=== PATIENT | female | born 1935 | race Caucasian/White ===

== ENCOUNTER 2020-08-30 12:43 | Emergency (ER) | payer MEDICARE, OTHER, SELFPAY ==
[2020-08-30] VITALS (9 sets, daily range): BP systolic 158–201; BP diastolic 59–84; PULSE 54–66; RESP 12–26; TEMP 36.8; O2SAT 96–100
--- NOTE | ~2020-08-30 | XR_ITS ---
XR chest 1V portable DATE: 08/30/2020 13:49 INDICATION: Weakness. TECHNIQUE: Portable AP chest on 08/30/2020 at 1348 hours COMPARISON: 06/16/2019 AP and lateral chest FINDINGS: There are multiple old rib fracture deformities, especially on the right. Diffuse osteopeni a. Dextroscoliosis and degenerative spurring of the thoracolumbar spine. Cardiomegaly. Aortic calcification. No hilar or mediastinal enlargement. No pulmonary infiltrate or consolidation, pleural effusion or pulmonary vascular congestion or pneumo thorax IMPRESSION: Cardiomegaly Aortic atherosclerosis No active pulmonary disease Reviewed, dictated and finalized at location A.
--- NOTE | 2020-08-30 13:04 | ECG_ITS ---
Measurements Intervals [place] Rate: 65 P: 71 [place]: 224 QRS: -21 QRSD: 89 T: 57 QT: 418 QTc: 437 Interpretive Statements SINUS RHYTHM WITH FIRST DEGREE AV BLOCK VOLTAGE CRITERIA FOR LVH ANTEROSEPTAL INFARCT, AGE INDETERMINATE BORDERLINE ST ABNORMALITY- LATERAL LEADS ABNORMAL ECG Electronically Signed On 08-30-2020 13:46:20 CDT by Nahun Fishman D.O.
[2020-08-30 13:34] LABS: Basophils Percent Auto 0.4 % (0.2-1.2); Eosinophils Absolute Auto 0.1 K/mm3 (0-0.3); Eosinophils Percent Auto 1.6 % (0-4.4); Hematocrit 39.8 % (37.0-47.0); Hemoglobin 12.9 g/dL (12.0-15.0); Immature Granulocyte Absolute 0.02 K/mm3 (0.00-0.031); Immature Granulocyte Percent A 0.3 % (0-0.5); Lymphocytes Absolute Auto 1.11 K/mm3 (0.9-3.2); Lymphocytes Percent Auto 16.2 % (18.3-44.2); Mean Corpuscular HGB Conc 32.4 g/dl (32-36); Mean Corpuscular Hemoglobin 30.1 pg (26-34); Mean Platelet Volume 8.9 fl (7.4-10.4); Monocytes Absolute Auto 0.6 K/mm3 (0.1-0.6); Monocytes Percent Auto 9.1 % (2.6-8.5); Neutrophils Percent Auto 72.4 % (45.5-73.1); Platelet Count Result 208 k/mm3 (150-375); Red Blood Count 4.28 M/mm3 (4.2-5.4); Red Cell Distribution Width 13.3 % (11.5-14.5); White Blood Count 6.8 K/mm3 (4.5-10.0)
[2020-08-30 13:50] LABS: Alanine Aminotransferase 15 U/L (4-35); Albumin Level 3.8 g/dL (3.5-5.1); Alkaline Phosphatase 58 U/L (38-126); Anion Gap 6 mmol/L (8-16); Aspartate Amino Transferase 30 U/L (14-36); Bilirubin,Total 0.7 mg/dL (0.2-1.3); Blood Urea Nitrogen 40 mg/dL (7-17); Carbon Dioxide 30 mmol/L (22-30); Chloride 101 mmol/L (98-107); Estimated CRCL calculation 44 ml/min; Estimated Glomerular Filt Rate > 60; Glucose 131 mg/dL (65-105); Potassium 4.8 mmol/L (3.4-5.0); Sodium 137 mmol/L (137-145)
[2020-08-30 13:53] LABS: Add Urine Microscopic? YES; Appearance Urine Clear (Clear); Bilirubin Urine Negative (Negative); Blood Urine Negative (Negative); Color Urine Yellow (Yellow); Glucose Urine UA Negative (Negative); Ketones Urine Negative (Negative); Leukocyte Esterase Ur Negative LEU/UL (Negative); Mucus Urine Heavy /lpf; Nitrate Urine Negative (Negative); Protein Urine 1+ mg/dL (Negative); Specific Grav Ur 1.028 (1.001-1.035); Squamous Epithelial Cell Urine Occasional /hpf (Few); Transitional Epi Cells Urine Rare /hpf (None Seen); Urobilinogen Urine Negative mg/dL (<2.0)
[2020-08-30] MEDS: SODIUM CHLORIDE 0.9% IV 1,000 ML 999 ML IV CONT (14:24)
--- NOTE | 2020-08-30 15:03 | ED.WEAKNESS ---
HPI - Weakness General Chief complaint: Weakness Stated complaint: lethargy, off-balance, poor appetite x 1 week Time Seen by Provider: 08/30/20 13:15 History of Present Illness HPI Narrative: Patient is an 84-year-old female who presents the ER with increased fatigue and decreased eating. Worsening over the last 3 or 4 days. Patient seems to be forgetting how to eat her food and is sleeping more than usual. Patient has dementia that has been in significant decline over the last couple years. She has had no infectious symptoms according to her global sales manager. No falls. No additional complaints. Related Data Home Medications Medication Instructions Recorded Confirmed aspirin [Adult Aspirin EC Low 08/30/20 Strength] donepezil mg 08/30/20 08/30/20 fluticasone propionate [Flonase] INTRANASAL 08/30/20 losartan 08/30/20 memantine mg 08/30/20 metoprolol succinate PO 08/30/20 nifedipine PO 08/30/20 pravastatin 08/30/20 quetiapine 08/30/20 sertraline mg 08/30/20 Allergies Allergy/AdvReac Type Severity Reaction Status Date / Time carisoprodol Allergy Unknown Verified 08/30/20 14:38 [From Soma Compound] Review of Systems Review of Systems: ROS unobtainable: Yes unobtainable due to mental status PMFSH Past Medical History Medical History (Updated 08/30/20 @ 15:06 by Qasim Engel MD) Dementia Hyperlipidemia Hypertension Surgical History Surgical History (Updated 08/30/20 @ 15:04 by Qasim Engel MD) No history of previous surgery Social History Social History (Updated 08/30/20 @ 15:04 by Qasim Engel MD) Smoking status: Never smoker Exam Narrative: Exam Narrative: GENERAL: Well-appearing, well-nourished, and in no acute distress. HEAD: Normocephalic, atraumatic. EYES: PERRL and EOMI. CHEST: Clear to auscultation. No respiratory distress. HEART: Regular rate and rhythm. Normal peripheral pulses. ABDOMEN: Soft, nontender, nondistended, normal active bowel sounds. EXTREMITIES: Normal range of motion. No edema. NEURO: Alert and oriented x2. PSYCH: Normal mood and affect. Course Course Emergency Course: Patient appears well has no complaints despite her dementia. Discussed with family member that patient may just have progressing dementia. We will start her on a very short course of antibiotics in case her urine represents a very mild UTI. Vital Signs Vital signs: Vital Signs Temperature 98.3 F 08/30/20 13:14 Pulse Rate 65 08/30/20 13:14 Respiratory Rate 18 08/30/20 13:14 Blood Pressure 177/69 H 08/30/20 13:14 Pulse Oximetry 97 08/30/20 13:14 Temperature 98.3 F 08/30/20 13:14 Pulse Rate 65 08/30/20 13:14 Respiratory Rate 18 08/30/20 13:14 Blood Pressure 177/69 H 08/30/20 13:14 Pulse Oximetry 97 08/30/20 13:14 MDM - Weakness Lab Data Result diagrams: 08/30/20 13:27 08/30/20 13:27 Labs: Lab Results 08/30/20 08/30/20 08/30/20 Range/Units 13:27 13:27 13:37 WBC 6.8 (4.5-10.0) K/mm3 RBC 4.28 (4.2-5.4) M/mm3 Hgb 12.9 (12.0-15.0) g/dL Hct 39.8 (37.0-47.0) % MCV 93.0 (80-100) fl MCH 30.1 (26-34) pg MCHC 32.4 (32-36) g/dl RDW 13.3 (11.5-14.5) % Plt Count 208 (150-375) k/mm3 MPV 8.9 (7.4-10.4) fl Immature Gran % (Auto) 0.3 (0-0.5) % Neut % (Auto) 72.4 (45.5-73.1) % Lymph % (Auto) 16.2 L (18.3-44.2) % [place] % (Auto) 9.1 H (2.6-8.5) % Eos % (Auto) 1.6 (0-4.4) % Baso % (Auto) 0.4 (0.2-1.2) % Lymph # (Auto) 1.11 (0.9-3.2) K/mm3 [place] # (Auto) 0.6 (0.1-0.6) K/mm3 Eos # (Auto) 0.1 (0-0.3) K/mm3 Baso # (Auto) 0.0 (0.0-0.1) K/mm3 Abs Immat Gran (auto) 0.02 (0.00-0.031) K/mm3 Absolute Neuts (auto) 5.0 (1.3-6.7) K/mm3 Absolute Nucleated RBC 0.0 (0.0-0.012) K/mm3 Nucleated RBC % 0.0 (0.0-0.2) % Sodium 137 (137-145) mmol/L Potassium 4.8 (3.4-5.0) mmol/L Chloride 101 (98
== END 2020-08-30 16:15 | disposition home or self-care (01) ==
PROVIDERS: Emergency Provider Emergency Medicine; PCP Internal Medicine
DX: N39.0 Urinary tract infection, site not specified (principal); F03.90 Unspecified dementia, unspecified severity, without behavioral disturbance, psychotic disturbance, mood disturbance, and anxiety; E78.5 Hyperlipidemia, unspecified; I10 Essential (primary) hypertension; Z79.82 Long term (current) use of aspirin
CPT/HCPCS: 36415; 51701; 71045; 80053; 81001; 85025; 93005; 96360; 99284; J7030

== ENCOUNTER 2020-09-07 13:53 | Emergency (ER) | payer MEDICARE, OTHER, SELFPAY ==
--- NOTE | ~2020-09-07 | CT_ITS ---
EXAMINATION: CTA brain carotid DATE: 09/07/2020 15:34 INDICATION: Fall. TECHNIQUE: Computed tomographic angiography (CTA) of the head was performed without and with 100 mL O mnipaque-350 intravenous contrast. CTA of the neck was performed with intravenous contrast. Automated exposure control and iterative reconstruction technique were employed. The dose-length product was 1 582.25 mGy-cm. Maximum intensity projection and volume rendered 3D-reconstructions were created by ludmila bella technologist on a separate workstation. COMPARISON: Head CT 06/16/2019, brain MRI 06/18/2019 FINDINGS: HEAD CTA: There are scattered areas of low attenuation in the cerebral white matter. There are old la cunar infarcts in the bilateral caudate nuclei. There is a 2.1 x 1.5 x 1.8 cm sellar and suprasellar mass with mass effect on the optic chiasm. There is no intracranial hemorrhage. The ventricles are no rmal size of the degree of brain volume loss. There is mild mucosal thickening in the ethmoid sinuses . The mastoid air cells are normal. There are likely changes of ocular lens replacement surgeries. Th ere is a right lateral scalp hematoma. Right vertebral artery is dominant. There is no significant st enosis of basilar artery or the posterior cerebral arteries. Right P1 posterior cerebral artery segme nt is small, a normal variant. Right posterior communicating artery is normal. The left posterior com municating artery is not identified. There is no significant stenosis of the intracranial internal ca rotid arteries or anterior or middle cerebral arteries. Right A1 anterior cerebral artery segment is absent, a normal variant. Anterior communicating artery is normal. There is no aneurysm. NECK CTA: A calcified right lung nodule is consistent with old granulomatous disease. There are no pa thologically enlarged lymph nodes. There is no significant stenosis of the vertebral arteries. There is plaque in the proximal internal carotid arteries. There is 27% stenosis of the proximal right int ernal carotid artery relative to normal distal artery lumen diameter (NASCET criteria). There is 0% s tenosis of the proximal left internal carotid artery relative to normal distal artery lumen diameter. There is severe cervical spondylosis. IMPRESSION: 1. 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 2. Stable extensive nonspecific cerebral white matter disease, which likely represents chronic small vessel ischemic disease. 3. 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 4. No aneurysm or significant intracranial arterial stenosis. 5. 27% stenosis of the proximal right internal carotid artery relative to normal distal artery lumen diameter (NASCET criteria). 6. 0% stenosis of the proximal left internal carotid artery relative to normal distal artery lumen di ameter. Reviewed, dictated and finalized at location A. VINYL TOP INSTALLER IMPRESSION: 1. Stable 2.1 cm sellar and suprasellar mass, consistent with a pituitary macro adenoma. 2. Stable extensive nonspecific cerebral white matter disease, which likely rep resents chronic small vessel ischemic disease. 3. 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 4. No aneurysm or significant intracranial arterial stenosis. 5. 27% stenosis of the proximal right internal carotid artery relative to myra l distal artery lumen diameter (NASCET criteria). 6. 0% stenosis of the proximal left internal carotid artery relative to normal distal artery lumen diameter.
--- NOTE | ~2020-09-07 | XR_ITS ---
EXAMINATION: XR chest 2V DATE: 09/07/2020 15:23 INDICATION: Hypertension and fatigue TECHNIQUE: AP and lateral views of the chest are obtained. COMPARISON: 08/30/2020 FINDINGS: Cardiomegaly is noted. There is a mild diffuse interstitial pattern. No definite pleural ef fusion or pneumothorax is identified. Healed right-sided rib fractures are noted. IMPRESSION: 1. Cardiomegaly. 2. Mild diffuse interstitial pattern which could reflect pulmonary edema. Reviewed, dictated and finalized at location A. L HEWER
[2020-09-07 14:25] VITALS: BP 133/51; PULSE 67; RESP 15; TEMP 36.8; O2SAT 97
--- NOTE | 2020-09-07 14:27 | ECG_ITS ---
Measurements Intervals [place] Rate: 62 P: 65 [place]: 214 QRS: -18 QRSD: 101 T: 47 QT: 434 QTc: 443 Interpretive Statements SINUS RHYTHM BORDERLINE AV CONDUCTION DELAY LEFT VENTRICULAR HYPERTROPHY WITH ST-T CHANGE CANNOT RULE OUT SEPTAL INFARCT, AGE INDETERMINATE ABNORMAL ECG Electronically Signed On 09-07-2020 14:54:15 ALL AROUND GEAR MACHINE OPERATOR by Nahun Fishman D.O.
--- NOTE | 2020-09-07 14:38 | ED.FALL ---
HPI - Fall General Chief Complaint: Fall Stated Complaint: fall, head injury Time Seen by Provider: 09/07/20 14:26 Source: patient History of Present Illness HPI Narrative: Patient is A+Ox2, not a reliable historian. 84-year-old female presents to emergency department after sustaining a fall yesterday. Patient was brought in by her assistant restaurant general manager today. Patient is unsure what happened yesterday during the fall. Patient denies any pain at this time. She states he sometimes uses a walker to get around. No chest pain or shortness of breath. No abdominal pain. No nausea or vomiting. Related Data Home Medications Medication Instructions Recorded Confirmed aspirin [Adult Aspirin EC Low 08/30/20 Strength] donepezil mg 08/30/20 08/30/20 fluticasone propionate [Flonase] INTRANASAL 08/30/20 losartan 08/30/20 memantine mg 08/30/20 metoprolol succinate PO 08/30/20 nifedipine PO 08/30/20 pravastatin 08/30/20 quetiapine 08/30/20 sertraline mg 08/30/20 Allergies Allergy/AdvReac Type Severity Reaction Status Date / Time carisoprodol Allergy Unknown Verified 08/30/20 14:38 [From Soma Compound] Review of Systems Review of Systems: Narrative: CONSTITUTIONAL: Denies fever, chills, or sweats. EYES: Denies visual changes, redness, or discharge. ENT: Denies rhinorrhea, congestion, sore throat, or otalgia. CARDIOVASCULAR: Denies chest pain, palpitations, or edema. RESPIRATORY: Denies cough or dyspnea. GASTROINTESTINAL: Denies abdominal pain, nausea, vomiting, or diarrhea. GENITOURINARY: Denies dysuria or hematuria. SKIN: Denies rash or itching. MUSCULOSKELETAL: Denies back pain, joint pain, or myalgia. NEUROLOGIC: Denies headache, numbness, dizziness. Reports falls and chronic weakness PSYCHIATRIC: Denies anxiety or depression. All systems reviewed & are unremarkable except as noted in HPI and below (ROS) [facility] Past Medical History Medical History Dementia Hyperlipidemia Hypertension Surgical History Surgical History No history of previous surgery Social History Social History Smoking status: Never smoker Exam Narrative: Exam Narrative: GENERAL: Well-appearing, well-nourished, and in no acute distress. HEAD: Normocephalic, atraumatic. EYES: PERRLA and EOMI. ENT: Nares clear, no rhinorrhea or epistaxis. Mucous membranes moist. NECK: Supple. CHEST: Clear to auscultation. No respiratory distress. HEART: Regular rate and rhythm. No murmur heard. Normal peripheral pulses. ABDOMEN: Soft, nontender, nondistended, normal active bowel sounds. EXTREMITIES: Normal range of motion. No edema. SKIN: Warm, dry, no rash. NEURO: No focal deficits. Alert and oriented x2. Diffuse weakness. PSYCH: Normal mood and affect. Course Course Emergency Course: 14:50 - discussed case with assistant restaurant general manager. Pt has been shuffling more often. Was at the park today, walker in front of patient, pt tried to get up, screamed, then fell backwards. No LOC. 1635 -reevaluated patient, no new complaints. Patient's son at bedside. Patient had a nonsyncopal fall. Differential includes TIA. Patient is on aspirin therapy at this time. Offered to keep patient in the hospital for physical therapy, possible placement. Son is okay with patient going home, as patient has 24/7 in-house care, and he will schedule an appointment with her medical provider for possible physical therapy. Counseled patient and family member to return to emergency department at any time if patient has multiple falls, or other concerns. Additionally, patient has a known pituitary mass. Vital Signs Vital signs: Vital Signs Temperature 36.8 C 09/07/20 14:25 Pulse Rate 67 09/07/20 14:25 Respiratory Rate 15 09/07/20 14:25 Blood Pressure 133/51 L 09/07/20 14:25 Pulse Oximetry 97 09/07/20 14:25
--- NOTE | 2020-09-07 14:52 | PC.NURSE ---
Patient's son at bedside reports patient fell at park today and that she was treated for a UTI with antibiotics. Son also reports that patient just had cataract removal surgery and that she is getting antibiotic eye drops for that.
[2020-09-07 14:55] LABS: Basophils Percent Auto 0.5 % (0.2-1.2); Eosinophils Absolute Auto 0.2 K/mm3 (0-0.3); Eosinophils Percent Auto 2.2 % (0-4.4); Hematocrit 35.5 % (37.0-47.0); Hemoglobin 11.7 g/dL (12.0-15.0); Immature Granulocyte Absolute 0.03 K/mm3 (0.00-0.031); Immature Granulocyte Percent A 0.4 % (0-0.5); Lymphocytes Absolute Auto 1.23 K/mm3 (0.9-3.2); Lymphocytes Percent Auto 14.8 % (18.3-44.2); Mean Corpuscular Hemoglobin 30.2 pg (26-34); Mean Corpuscular Volume 91.7 fl (80-100); Mean Platelet Volume 8.9 fl (7.4-10.4); Monocytes Absolute Auto 0.7 K/mm3 (0.1-0.6); Monocytes Percent Auto 8.6 % (2.6-8.5); Neutrophils Absolute Auto 6.1 K/mm3 (1.3-6.7); Neutrophils Percent Auto 73.5 % (45.5-73.1); Platelet Count Result 201 k/mm3 (150-375); Red Blood Count 3.87 M/mm3 (4.2-5.4); Red Cell Distribution Width 13.3 % (11.5-14.5); White Blood Count 8.3 K/mm3 (4.5-10.0)
[2020-09-07 15:06] LABS: Alanine Aminotransferase 14 U/L (4-35); Albumin Level 3.4 g/dL (3.5-5.1); Alkaline Phosphatase 67 U/L (38-126); Anion Gap 6 mmol/L (8-16); Aspartate Amino Transferase 23 U/L (14-36); Bilirubin,Total 0.3 mg/dL (0.2-1.3); Blood Urea Nitrogen 42 mg/dL (7-17); Calcium 8.5 mg/dL (8.4-10.2); Carbon Dioxide 30 mmol/L (22-30); Chloride 102 mmol/L (98-107); Estimated CRCL calculation 44 ml/min; Estimated Glomerular Filt Rate > 60; Glucose 170 mg/dL (65-105); Magnesium 2.1 mg/dL (1.6-2.3); Potassium 4.3 mmol/L (3.4-5.0); Sodium 138 mmol/L (137-145)
[2020-09-07 15:07] LABS: Acetaminophen < 10 ug/mL (10-30); Salicylate < 1.0 mg/dL (2-20)
[2020-09-07 15:15] LABS: INR 0.9; Prothrombin Time 12.6 Seconds (11.1-14.7)
[2020-09-07 15:18] LABS: NT Pro B Type Natriuretic Pept 1800 PG/ML (5-100); Troponin I < 0.012 ng/mL (0.000-0.034)
[2020-09-07 15:22] LABS: Estimated CRCL calculation 39 ml/min; Estimated Glomerular Filt Rate > 60
[2020-09-07 16:11] LABS: Add Urine Microscopic? NO; Appearance Urine Clear (Clear); Bilirubin Urine Negative (Negative); Blood Urine Negative (Negative); Color Urine Straw (Yellow); Glucose Urine UA Negative (Negative); Ketones Urine Negative (Negative); Leukocyte Esterase Ur Negative LEU/UL (Negative); Nitrate Urine Negative (Negative); Protein Urine Negative (Negative); Urobilinogen Urine Negative mg/dL (<2.0)
[2020-09-07 16:18] LABS: Specific Grav Ur 1.053 (1.001-1.035)
== END 2020-09-07 17:28 | disposition home or self-care (01) ==
PROVIDERS: Emergency Provider Emergency Medicine
DX: R53.1 Weakness (principal); F03.90 Unspecified dementia, unspecified severity, without behavioral disturbance, psychotic disturbance, mood disturbance, and anxiety; E78.5 Hyperlipidemia, unspecified; I10 Essential (primary) hypertension; R90.82 White matter disease, unspecified; E23.6 Other disorders of pituitary gland; Z79.899 Other long term (current) drug therapy; Z79.82 Long term (current) use of aspirin; R91.8 Other nonspecific abnormal finding of lung field; I51.7 Cardiomegaly; R94.31 Abnormal electrocardiogram [ECG] [EKG]; W19.XXXA Unspecified fall, initial encounter
CPT/HCPCS: 36415; 70496; 70498; 71046; 80053; 80307; 81003; 83735; 83880; 84484; 85025; 85610; 93005; 99284; Q9967

== ENCOUNTER 2020-11-18 15:53 | Emergency (ER) | payer MEDICARE, OTHER, SELFPAY ==
--- NOTE | ~2020-11-18 | XR_ITS ---
EXAMINATION: XR chest 1V portable DATE: 11/18/2020 17:03 INDICATION: Weakness. Lethargy. Hypertension. TECHNIQUE: A single frontal view of the chest was obtained. COMPARISON: Chest 2 views 09/07/2020 FINDINGS: There is no pneumonia, pleural effusion, or pneumothorax. Cardiomegaly is noted. IMPRESSION: 1. Cardiomegaly. Reviewed, dictated and finalized at location A. ORK APPLICATIONS SPECIALIST IMPRESSION: 1. Cardiomegaly.
[2020-11-18 15:57] VITALS: BP 151/61; PULSE 68; RESP 18; TEMP 35.4; O2SAT 98
[2020-11-18 16:17] LABS: Basophils Absolute Auto 0.1 K/mm3 (0.0-0.1); Basophils Percent Auto 0.5 % (0.2-1.2); Eosinophils Absolute Auto 0.1 K/mm3 (0-0.3); Eosinophils Percent Auto 0.7 % (0-4.4); Hematocrit 42.7 % (37.0-47.0); Hemoglobin 13.9 g/dL (12.0-15.0); Immature Granulocyte Absolute 0.03 K/mm3 (0.00-0.031); Immature Granulocyte Percent A 0.3 % (0-0.5); Mean Corpuscular HGB Conc 32.6 g/dl (32-36); Mean Corpuscular Hemoglobin 30.2 pg (26-34); Mean Corpuscular Volume 92.8 fl (80-100); Mean Platelet Volume 8.9 fl (7.4-10.4); Monocytes Absolute Auto 0.9 K/mm3 (0.1-0.6); Monocytes Percent Auto 9.4 % (2.6-8.5); Neutrophils Absolute Auto 6.8 K/mm3 (1.3-6.7); Neutrophils Percent Auto 73.1 % (45.5-73.1); Platelet Count Result 248 k/mm3 (150-375); Red Cell Distribution Width 13.4 % (11.5-14.5); White Blood Count 9.4 K/mm3 (4.5-10.0)
[2020-11-18 16:26] LABS: Alanine Aminotransferase 15 U/L (4-35); Alkaline Phosphatase 88 U/L (38-126); Anion Gap 5 mmol/L (8-16); Aspartate Amino Transferase 26 U/L (14-36); Bilirubin,Total 0.4 mg/dL (0.2-1.3); Blood Urea Nitrogen 62 mg/dL (7-17); Calcium 9.2 mg/dL (8.4-10.2); Carbon Dioxide 29 mmol/L (22-30); Chloride 103 mmol/L (98-107); Estimated CRCL calculation 31 ml/min; Estimated Glomerular Filt Rate 53; Glucose 123 mg/dL (65-105); Potassium 4.1 mmol/L (3.4-5.0); Sodium 137 mmol/L (137-145)
--- NOTE | 2020-11-18 16:45 | PC.NURSE ---
patient's daughter brought her to ED today with increased lethargy and unsteady gait. states patient has had these same symptoms
[2020-11-18 16:53] VITALS: PULSE 88
[2020-11-18 16:59] LABS: Basophils Percent Auto 0.4 % (0.2-1.2); Eosinophils Absolute Auto 0.1 K/mm3 (0-0.3); Hemoglobin 12.9 g/dL (12.0-15.0); Immature Granulocyte Absolute 0.04 K/mm3 (0.00-0.031); Immature Granulocyte Percent A 0.4 % (0-0.5); Lymphocytes Absolute Auto 1.69 K/mm3 (0.9-3.2); Lymphocytes Percent Auto 16.3 % (18.3-44.2); Mean Corpuscular HGB Conc 33.1 g/dl (32-36); Mean Corpuscular Hemoglobin 30.3 pg (26-34); Mean Corpuscular Volume 91.5 fl (80-100); Mean Platelet Volume 9.1 fl (7.4-10.4); Monocytes Percent Auto 9.8 % (2.6-8.5); Neutrophils Absolute Auto 7.5 K/mm3 (1.3-6.7); Neutrophils Percent Auto 72.1 % (45.5-73.1); Platelet Count Result 254 k/mm3 (150-375); Red Blood Count 4.26 M/mm3 (4.2-5.4); Red Cell Distribution Width 13.4 % (11.5-14.5); White Blood Count 10.4 K/mm3 (4.5-10.0)
[2020-11-18 17:09] LABS: Prothrombin Time 14.1 Seconds (11.1-14.7)
[2020-11-18 17:10] LABS: Alanine Aminotransferase 14 U/L (4-35); Albumin Level 3.9 g/dL (3.5-5.1); Alkaline Phosphatase 82 U/L (38-126); Anion Gap 3 mmol/L (8-16); Aspartate Amino Transferase 25 U/L (14-36); Bilirubin,Total 0.4 mg/dL (0.2-1.3); Blood Urea Nitrogen 64 mg/dL (7-17); Calcium 9.2 mg/dL (8.4-10.2); Carbon Dioxide 31 mmol/L (22-30); Chloride 104 mmol/L (98-107); Estimated CRCL calculation 31 ml/min; Estimated Glomerular Filt Rate 53; Glucose 121 mg/dL (65-105); Partial Thromboplastin Time 27.5 SECONDS (22.3-36.8); Potassium 3.8 mmol/L (3.4-5.0); Sodium 138 mmol/L (137-145)
[2020-11-18 17:11] LABS: Add Urine Microscopic? YES; Appearance Urine Clear (Clear); Bilirubin Urine Negative (Negative); Color Urine Yellow (Yellow); Glucose Urine UA Negative (Negative); Ketones Urine Negative (Negative); Leukocyte Esterase Ur 1+ LEU/UL (Negative); Mucus Urine Few /lpf; Nitrate Urine Negative (Negative); Protein Urine 1+ mg/dL (Negative); Specific Grav Ur 1.027 (1.001-1.035); Squamous Epithelial Cell Urine Occasional /hpf (Few); Urobilinogen Urine Negative mg/dL (<2.0)
[2020-11-18 17:15] LABS: Blood Urine Negative (Negative)
[2020-11-18 17:22] LABS: Troponin I < 0.012 ng/mL (0.000-0.034)
--- NOTE | 2020-11-18 17:28 | ED.WEAKNESS ---
HPI - Weakness General Chief complaint: Weakness Stated complaint: Lethergy Time Seen by Provider: 11/18/20 16:28 Source: patient and family Mode of arrival: ambulatory Limitations: dementia History of Present Illness HPI Narrative: An 84-year-old lady comes into the emergency department with complaints of altered mental status. The patient's caregiver states that she has had an increase in her aggressiveness and how agitated she is. She states usually when this happens she is found to be low on sodium and has had a urinary tract infection. Patient does also have a history of Lewy body dementia. Caregiver denies any changes in recent medications. Related Data Home Medications Medication Instructions Recorded Confirmed aspirin [Adult Aspirin EC Low 08/30/20 Strength] donepezil mg 08/30/20 08/30/20 fluticasone propionate [Flonase] INTRANASAL 08/30/20 losartan 08/30/20 memantine mg 08/30/20 metoprolol succinate PO 08/30/20 nifedipine PO 08/30/20 pravastatin 08/30/20 quetiapine 08/30/20 sertraline mg 08/30/20 Allergies Allergy/AdvReac Type Severity Reaction Status Date / Time carisoprodol Allergy Unknown Verified 08/30/20 14:38 [From Soma Compound] Review of Systems Review of Systems: ROS unobtainable: Yes unobtainable due to mental status (Dementia) [facility] Past Medical History Medical History Dementia Hyperlipidemia Hypertension Surgical History Surgical History No history of previous surgery Social History Social History Smoking status: Never smoker Exam Narrative: Exam Narrative: GENERAL: Well-appearing, well-nourished, and in no acute distress. HEAD: Normocephalic, atraumatic. EYES: PERRLA and EOMI. ENT: Nares clear, no rhinorrhea or epistaxis. Mucous membranes moist. Oropharynx without tonsillar hypertrophy exudate or other lesions. Bilateral TMs pearly sahni nonbulging NECK: Supple. No adenopathy or masses. No carotid bruits or JVD CHEST: Clear to auscultation. No respiratory distress. No wheezes rales or rhonchi HEART: Regular rate and rhythm. No murmur heard. Normal peripheral pulses. ABDOMEN: Soft, nontender, nondistended, normal active bowel sounds. EXTREMITIES: Normal range of motion. No edema. SKIN: Warm, dry, no rash. NEURO: No focal deficits. Alert and oriented x1-2. PSYCH: Normal mood and affect. Course Reevaluation(s) Reevaluation #1: Updated the patient's caregiver to the findings. Review of the patient's labs were reassuring. There was no evidence of hyponatremia. Patient's urine was also clear for signs of infection. I did have a discussion and found out that the person present does not family as she is a hired caregiver. She states that the patient is usually much more aggressive with her than with her family. Time: 18:24 Vital Signs Vital signs: Vital Signs Temperature 35.4 C L 11/18/20 15:57 Pulse Rate 68 11/18/20 15:57 Respiratory Rate 18 11/18/20 15:57 Blood Pressure 151/61 H 11/18/20 15:57 Pulse Oximetry 98 11/18/20 15:57 Temperature 35.4 C L 11/18/20 15:57 Pulse Rate 88 11/18/20 16:53 Respiratory Rate 18 11/18/20 15:57 Blood Pressure 151/61 H 11/18/20 15:57 Pulse Oximetry 98 11/18/20 15:57 MDM - Weakness MDM Narrative Medical decision making narrative: In brief this is an 84-year-old female brought into the emergency department for increase in agitation and confusion. Caregiver states that this is usually associated with low sodium levels or perhaps a UTI. Review of the labs obtained does show sodium within normal limits. Patient's urine may be showing signs of an early urinary tract infection, given the presentation of the symptoms and that this is usually consistent with a urinary tract infection we will go ahead and empirically treat with cephalex
== END 2020-11-18 18:52 | disposition home or self-care (01) ==
PROVIDERS: Emergency Provider Emergency Medicine; PCP Physical Medicine & Rehabilitation
DX: N30.00 Acute cystitis without hematuria (principal); E86.0 Dehydration; R45.1 Restlessness and agitation; G31.83 Neurocognitive disorder with Lewy bodies; F02.80 Dementia in other diseases classified elsewhere, unspecified severity, without behavioral disturbance, psychotic disturbance, mood disturbance, and anxiety; E78.5 Hyperlipidemia, unspecified; I10 Essential (primary) hypertension; I51.7 Cardiomegaly; Z79.82 Long term (current) use of aspirin
CPT/HCPCS: 36415; 51701; 71045; 80053; 81001; 84484; 85025; 85610; 85730; 87086; 99284

== ENCOUNTER 2021-01-05 09:56 | Outpatient (CLI) | payer MEDICARE, SELFPAY | END 2021-01-05 09:57 | disposition home or self-care (01) | PROVIDERS: Visit Provider Otolaryngology | DX: H91.90 Unspecified hearing loss, unspecified ear (principal) | CPT/HCPCS: 92557; 92567 ==

== ENCOUNTER 2021-04-14 19:26 | Inpatient (IN) | payer MEDICARE, SELFPAY ==
[2021-04-14] VITALS (14 sets, daily range): BP systolic 110–126; BP diastolic 47–73; PULSE 76–85; RESP 14–22; TEMP 36.9; O2SAT 94–97
--- NOTE | ~2021-04-14 | CT_ITS ---
EXAMINATION: CT brain wo con DATE: 04/14/2021 22:28 INDICATION: Worsening confusion TECHNIQUE: Computed tomography (CT) of the head was performed without intravenous contrast. Sagittal and coronal reconstructions were performed. The mA was adjusted according to patient size. Iterative reconstruction technique was employed. The dose-length product was 605.33 mGy-cm. COMPARISON: head CT dated 09/07/2020 FINDINGS: No acute intracranial hemorrhage, acute infarction or abnormal extra axial fluid collection. There is extensive scattered white matter hypoattenuation consistent with chronic small vessel ischemic disea se. Again seen are small old lacunar infarcts at the bilateral caudate nuclei. Symmetric prominence o f the sulci and ventricles consistent with moderate age-appropriate diffuse cerebral volume loss. No interval change in a 2.1 x 1.6 x 1.8 cm sellar and suprasellar mass which exerts mass effect upon the optic chiasm most consistent with a pituitary macroadenoma. Changes of bilateral intraocular lens re placement. The orbits, paranasal sinuses and mastoid air cells are normal. Intracranial calcified cer ebral atherosclerosis is noted. IMPRESSION: 1. No acute intracranial process. 2. Unchanged 2.1 cm sellar/suprasellar mass consistent with pituitary macroadenoma. 3. 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 4. Age-related changes including moderate diffuse volume loss and extensive periventricular predomina nt white matter hypoattenuation consistent with chronic small vessel ischemic disease. Reviewed, dictated and finalized at location A. IMPRESSION: 1. No acute intracranial process. 2. Unchanged 2.1 cm sellar/suprasellar mass consistent with pituitary macroaden karlie. 3. 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 4. Age-related changes including moderate diffuse volume loss and extensive per iventricular predominant white matter hypoattenuation consistent with chronic s mall vessel ischemic disease.
--- NOTE | ~2021-04-14 | CT_ITS ---
EXAMINATION: CT abdomen pelvis w con DATE: 04/14/2021 23:37 INDICATION: Lower abdominal pain. TECHNIQUE: Computed tomography (CT) of the abdomen and pelvis was performed with 100 mL Omnipaque-350 intravenous contrast. Automated exposure control and iterative reconstruction technique were employe d. The dose-length product was 733.21 mGy-cm. COMPARISON: None FINDINGS: Mild bibasilar atelectasis. Cardiomegaly. Atherosclerotic coronary artery calcification. No pericardi al or pleural effusion. Liver, gallbladder, pancreas and bilateral adrenal glands are normal. Splenic calcific lesions consistent with old granulomatous disease. There is urothelial enhancement at the b ilateral renal collecting systems concerning for ascending urinary tract infections. At both kidneys there are regions of decreased cortical medullary differentiation with decreased cortical enhancement raising suspicion for pyelonephritis. Subtle haziness to the fat surrounding the bladder which could be seen with cystitis. Uterus and bilateral adnexa are unremarkable. Mild scattered colonic divertic ulosis without adjacent inflammatory change to suggest diverticular colitis. Small bowel and appendix are normal. No free intraperitoneal gas or fluid. No pathologically enlarged abdominal or pelvic lym phadenopathy. There is calcified atherosclerosis of the aorta and many of the other arteries. Mild th oracolumbar dextroscoliosis with severe spondylosis. IMPRESSION: 1. Constellation of findings consistent with cystitis, bilateral ascending urinary tract infection an d likely early pyelonephritis. Correlate with urinalysis. 2. Cardiomegaly. Reviewed, dictated and finalized at location A. IMPRESSION: 1. Constellation of findings consistent with cystitis, bilateral ascending urin miguel a tract infection and likely early pyelonephritis. Correlate with urinalysis. 2. Cardiomegaly.
--- NOTE | ~2021-04-14 | XR_ITS ---
EXAMINATION: XR chest 2V DATE: 04/14/2021 20:40 INDICATION: Chest pain and shortness of breath. TECHNIQUE: frontal and lateral views of the chest were obtained. COMPARISON: Chest radiograph dated 11/18/2020 FINDINGS: The lungs remain clear with no focal airspace opacities, pulmonary edema, pleural effusion or pneumot horax. The cardiomediastinal silhouette is normal. Multiple old right-sided rib fractures. Mildly dis placed acute to subacute fracture of the lateral left clavicle. Thoracic kyphosis with severe spondyl osis. IMPRESSION: 1. No acute cardiopulmonary disease. 2. Mildly displaced acute to subacute fracture of the lateral left clavicle. Correlate for history of recent trauma. Reviewed, dictated and finalized at location A. IMPRESSION: 1. No acute cardiopulmonary disease. 2. Mildly displaced acute to subacute fracture of the lateral left clavicle. Co rrelate for history of recent trauma.
--- NOTE | 2021-04-14 20:23 | ECG_ITS ---
Measurements Intervals [place] Rate: 79 P: 62 [place]: 192 QRS: -24 QRSD: 94 T: 20 QT: 370 QTc: 424 Interpretive Statements SINUS RHYTHM LEFT VENTRICULAR HYPERTROPHY WITH ST-T CHANGE ANTEROSEPTAL INFARCT, AGE INDETERMINATE INFERIOR INFARCT, AGE INDETERMINATE ABNORMAL ECG Electronically Signed On 04-15-2021 6:31:14 CDT by Nahun Fishman D.O.
--- NOTE | 2021-04-14 22:05 | ED.GENADULT ---
HPI - General Adult General Chief complaint: Weakness Stated complaint: CP/ abd pain/ not walking Time Seen by Provider: 04/14/21 21:42 Source: family, RN notes reviewed and other (caregiver) Mode of arrival: ambulatory Limitations: dementia History of Present Illness HPI narrative: This is an 85 year old female with Lewy Body dementia who presents for evaluation of change in behavior. Her caregiver is at bedside providing patient's history. She states patient has not been eating or drinking much over the past 2 days. She states usually patient has a UTI when she does this . She also states patient was complaining of chest and abdominal pain so she brought patient to ER. Patient was found to have a left clavicle fracture on her chest xray today. Her caregiver states patient fell 2 weeks ago but she did not have any complaints. She did have bruising to her side at that time. Patient denies anything at this time. Related Data Home Medications Medication Instructions Recorded Confirmed aspirin [Adult Aspirin EC Low 81 mg PO DAILY 08/30/20 04/15/21 Strength] donepezil 10 mg PO DAILY 08/30/20 04/15/21 losartan 50 mg PO DAILY 08/30/20 04/15/21 memantine 10 mg PO DAILY 08/30/20 04/15/21 metoprolol succinate 50 mg PO DAILY 08/30/20 04/15/21 nifedipine 30 mg PO DAILY 08/30/20 04/15/21 pravastatin 20 mg PO DAILY 08/30/20 04/15/21 quetiapine 25 mg PO DAILY 08/30/20 04/15/21 sertraline 100 mg PO DAILY 08/30/20 04/15/21 B complex with C 20-folic acid 1 cap PO DAILY 04/15/21 04/15/21 cetirizine [Zyrtec] 10 mg PO DAILY 04/15/21 04/15/21 cholecalciferol (vitamin D3) 125 mcg PO DAILY 04/15/21 04/15/21 docusate sodium 100 mg PO HS 04/15/21 04/15/21 furosemide 40 mg PO PRN PRN 04/15/21 04/15/21 ipratropium-albuterol 3 ml INHALATION PRN PRN 04/15/21 04/15/21 naproxen sodium 220 mg PO BID 04/15/21 04/15/21 potassium chloride 10 meq PO PRN PRN 04/15/21 04/15/21 Allergies Allergy/AdvReac Type Severity Reaction Status Date / Time carisoprodol Allergy Unknown Unknown Verified 04/15/21 02:57 [From Soma Compound] Review of Systems Review of Systems: ROS unobtainable: Yes other (dementia) [facility]END[facility] S[facility] Past Medical History Medical History (Updated 04/15/21 @ 08:00 by Josy Stinson MD) Dementia Hyperlipidemia Hypertension Surgical History Surgical History No history of previous surgery Family History Family History Mother Breast cancer Father Hypertension Acute myocardial infarction Son Diabetes mellitus Hyperlipemia Anxiety Son Hyperlipemia Anxiety Social History Social History Smoking status: Never smoker Alcohol intake: former Substance use: never Gender identity (if verbalized by the patient): Female Spiritual care concerns: No Exam Const: General: no acute distress and alert Other: oriented to person and place HENMT: Face and sinus: normal facial exam, sinuses nontender and face symmetric Mouth: Yes Normal oral and palatal mucosa present, Yes lip normal, Yes oropharynx normal and Yes moist mucous membranes Throat: uvula midline Eyes: Pupils: Equal, round and reactive pupils present EOM: EOMs intact bilaterally Chest: Chest palpation & inspection: normal inspection of the chest and no tenderness Resp: Effort & Inspection: normal respiratory effort and no retractions Auscultation: clear to auscultation bilaterally Cardio: Rate: regular rate Rhythm: regular rhythm Heart sounds: no murmurs GI: GI Palp: Yes Soft to palpation, Yes Tenderness to palpation present (GI) and No Guarding due to palpation present (GI) Auscultation: normal bowel sounds Skin: General skin exam: normal color Rashes: no rashes Neuro: General: moves all extremities, no focal motor deficits and CN's II-XI intact bilaterally Cranial nerves: Yes N
[2021-04-14 22:11] LABS: Basophils Percent Auto 0.2 % (0.2-1.2); Eosinophils Absolute Auto 0.1 K/mm3 (0-0.3); Eosinophils Percent Auto 0.6 % (0-4.4); Hematocrit 35.6 % (37.0-47.0); Hemoglobin 11.6 g/dL (12.0-15.0); Immature Granulocyte Absolute 0.07 K/mm3 (0.00-0.031); Immature Granulocyte Percent A 0.6 % (0-0.5); Lymphocytes Absolute Auto 1.01 K/mm3 (0.9-3.2); Lymphocytes Percent Auto 8.1 % (18.3-44.2); Mean Corpuscular HGB Conc 32.6 g/dl (32-36); Mean Corpuscular Hemoglobin 29.5 pg (26-34); Mean Corpuscular Volume 90.6 fl (80-100); Mean Platelet Volume 9.4 fl (7.4-10.4); Monocytes Absolute Auto 1.2 K/mm3 (0.1-0.6); Monocytes Percent Auto 9.6 % (2.6-8.5); Neutrophils Absolute Auto 10.1 K/mm3 (1.3-6.7); Neutrophils Percent Auto 80.9 % (45.5-73.1); Platelet Count Result 234 k/mm3 (150-375); Red Blood Count 3.93 M/mm3 (4.2-5.4); Red Cell Distribution Width 13.3 % (11.5-14.5); White Blood Count 12.5 K/mm3 (4.5-10.0)
[2021-04-14 22:22] LABS: Anion Gap 5 mmol/L (8-16); Blood Urea Nitrogen 50 mg/dL (7-17); Calcium 8.8 mg/dL (8.4-10.2); Carbon Dioxide 29 mmol/L (22-30); Chloride 101 mmol/L (98-107); Estimated Glomerular Filt Rate 59; Glucose 146 mg/dL (65-105); Potassium 4.5 mmol/L (3.4-5.0); Sodium 135 mmol/L (137-145)
[2021-04-14 22:23] LABS: INR 1.1; Partial Thromboplastin Time 29.5 SECONDS (22.3-36.8); Prothrombin Time 14.7 Seconds (11.1-14.7)
--- NOTE | 2021-04-14 22:28 | PC.NURSE ---
Spoke to Clara in lab and about adding Hep Lip @[id number]
[2021-04-14 22:47] LABS: Alanine Aminotransferase 28 U/L (4-35); Albumin Level 3.5 g/dL (3.5-5.1); Alkaline Phosphatase 107 U/L (38-126); Aspartate Amino Transferase 37 U/L (14-36); Bilirubin,Total 0.7 mg/dL (0.2-1.3); Lipase 58 U/L (23-300)
[2021-04-14 22:53] LABS: Add Urine Microscopic? YES; Appearance Urine Cloudy (Clear); Bacteria Urine 2+ /hpf; Bilirubin Urine Negative (Negative); Blood Urine 1+ (Negative); Color Urine Yellow (Yellow); Glucose Urine UA Negative (Negative); Ketones Urine Negative (Negative); Leukocyte Esterase Ur 3+ LEU/UL (Negative); Mucus Urine Moderate /lpf; Nitrate Urine Positive (Negative); Protein Urine 2+ mg/dL (Negative); Specific Grav Ur 1.016 (1.001-1.035); Urobilinogen Urine Negative mg/dL (<2.0); WBC Urine >75 /hpf
[2021-04-14] MEDS: SODIUM CHLORIDE 0.9% IV 1,000 ML 999 ML IV CONT (22:53)
[2021-04-14] MEDS: ASPIRIN 81 MG CHEWABLE TABLET 324 MG PO (23:45)
[2021-04-15] VITALS (13 sets, daily range): BP systolic 100–155; BP diastolic 45–95; PULSE 72–109; RESP 12–18; TEMP 36.2–37.2; O2SAT 92–96; BMI 23.8
[2021-04-15 00:43] LABS: Troponin I 0.077 ng/mL (0.000-0.034)
--- NOTE | 2021-04-15 02:27 | PC.NURSE ---
This patient, Noris Resendez, was admitted to IMU Room 205-02 on 04/15/21 at 0215. Patient/family oriented to hospital policies and general routines including ID bracelet, bed and alarms, visiting hours, pain management, procedures, bathroom and other care routines, personal items, smoking policy, room service/diet, and visiting hours. Information on how to activate the Rapid Response Team has been discussed. Patient/Family are encouraged to report perceived risks to care and to ask questions if they do not understand what they are told or what they should do.
[2021-04-15 03:03] LABS: Troponin I 0.073 ng/mL (0.000-0.034)
--- NOTE | 2021-04-15 03:42 | PM.IMHP ---
H&P: HPI History of Present Illness Date/Time: 04/15/21 03:42 Chief Complaint: Altered mental status Narrative: This is an 85-year-old female with past medical history significant for Lewy body dementia, COPD, hypertension. Patient was brought to the emergency room by her caregiver with states that the patient has changed lately she her usual she is oriented to person and place but has hallucination and delusions which are her norm. Lately patient has been staying in bed which is not her usual also has been complaining of feeling cold and has been having more hallucinations and confusion. Caregiver has given most of the history as patient is unable to provide any history given her dementia and altered mental status. Caregiver states that patient has had urinary tract infections in the past and that usually results in the patient having this constellation of symptoms. Preliminary workup was significant for CT of abdomen and pelvis with early pyelonephritis and cystitis. Review of Systems Review of Systems: ROS unobtainable: Yes unobtainable due to mental status (Dementia) PMFSH Past Medical History Medical History Dementia Hyperlipidemia Hypertension Surgical History Surgical History No history of previous surgery Family History Family History Mother Breast cancer Father Hypertension Acute myocardial infarction Son Diabetes mellitus Hyperlipemia Anxiety Son Hyperlipemia Anxiety Social History Social History Smoking status: Never smoker Alcohol intake: former Substance use: never Gender identity (if verbalized by the patient): Female Spiritual care concerns: No Meds Home Medications and Allergies Home Medications Medication Instructions Recorded Confirmed Type aspirin [Adult Aspirin EC Low 81 mg PO DAILY 08/30/20 04/15/21 History Strength] donepezil 10 mg PO DAILY 08/30/20 04/15/21 History losartan 50 mg PO DAILY 08/30/20 04/15/21 History memantine 10 mg PO DAILY 08/30/20 04/15/21 History metoprolol succinate 50 mg PO DAILY 08/30/20 04/15/21 History nifedipine 30 mg PO DAILY 08/30/20 04/15/21 History pravastatin 20 mg PO DAILY 08/30/20 04/15/21 History quetiapine 25 mg PO DAILY 08/30/20 04/15/21 History sertraline 100 mg PO DAILY 08/30/20 04/15/21 History B complex with C 20-folic acid 1 cap PO DAILY 04/15/21 04/15/21 History cetirizine [Zyrtec] 10 mg PO DAILY 04/15/21 04/15/21 History cholecalciferol (vitamin D3) 125 mcg PO DAILY 04/15/21 04/15/21 History docusate sodium 100 mg PO HS 04/15/21 04/15/21 History furosemide 40 mg PO PRN PRN 04/15/21 04/15/21 History ipratropium-albuterol 3 ml INHALATION PRN PRN 04/15/21 04/15/21 History naproxen sodium 220 mg PO BID 04/15/21 04/15/21 History potassium chloride 10 meq PO PRN PRN 04/15/21 04/15/21 History Allergies Allergy/AdvReac Type Severity Reaction Status Date / Time carisoprodol Allergy Unknown Unknown Verified 04/15/21 02:57 [From Soma Compound] Vital Signs Vital Signs - 24 hr 04/14/21 20:20 04/14/21 21:43 04/14/21 21:45 Temperature 98.5 F Pulse Rate 81 83 84 Respiratory Rate 14 22 H 19 Blood Pressure 126/47 L Pulse Oximetry 94 04/14/21 21:46 04/14/21 22:00 04/14/21 22:01 Temperature Pulse Rate 82 82 82 Respiratory Rate 22 H 17 18 Blood Pressure 121/47 L 110/62 Pulse Oximetry 04/14/21 22:15 04/14/21 22:16 04/14/21 22:36 Temperature Pulse Rate 77 81 76 Respiratory Rate 18 19 20 Blood Pressure 115/73 Pulse Oximetry 97 96 95 04/14/21 22:51 04/14/21 23:04 04/14/21 23:19 Temperature Pulse Rate 79 76 78 Respiratory Rate 17 17 20 Blood Pressure Pulse Oximetry 04/14/21 23:41 04/14/21 23:51 04/15/21 02:20 Temperature 98.1 F Pulse Rate 85 83 109 H Respir
--- NOTE | 2021-04-15 07:43 | PM.CNCAR ---
Assessment and Plan Assessment and plan (1) Hypertension: Code(s): I10 - Essential (primary) hypertension Status: Acute Assessment and Plan: Stable. (2) Hyperlipidemia: Code(s): E78.5 - Hyperlipidemia, unspecified Status: Inactive Assessment and Plan: On Pravastatin. (3) Altered mental status: Code(s): R41.82 - Altered mental status, unspecified Status: Acute Assessment and Plan: She has underlying dementia and may have been worse due to UTI/pyelonephritis. (4) Pyelonephritis: Code(s): N12 - Tubulo-interstitial nephritis, not specified as acute or chronic Status: Acute Assessment and Plan: On antibitoics and followed by hospitalist. (5) Elevated troponin: Code(s): R77.8 - Other specified abnormalities of plasma proteins Status: Acute Assessment and Plan: Mild and trended down. Asymptomatic from cardiac standpoint. Probably non-cardiac related due to UTI/pyelonephritis. Obtain echo to assess for wall motion abnormalities. If no WMA, no further cardiac workup is needed. History of Present Illness History of Present Illness Consult date/time: 04/15/21 07:43 Consult by ER doctor for elevated troponin 85 yr old woman with lewy body dementia, COPD, hypertension, dyslipidemia, and UTI presents to hospital for altered mental status. Patient tells me nothing is bothering her. According to the chart, a caregiver had mentioned that patient reported feeling cold and was more confused than her usual. She has dementia and is oriented to name and place only. Denies chest pain, sob, orthopnea, PND, dizziness, palpitations. Thus far workup revealed she has UTI on UA. CT abd shows cystitis and early pyelonephritis. 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 EKG without any acute ST changes. CXR shows mildly displaced acute to subacute fracture of left clavicle. Troponin mildly elevated at .09, then .077, then .073. Reason For Visit: UTI Complicated, Chest Pain, Elevated Troponin Review of Systems Review of Systems: All systems reviewed & are unremarkable except as noted in HPI and below ROS unobtainable: Yes unobtainable due to mental status Constitutional: Constitutional: Reports as per HPI Cardiovascular: Cardiovascular: Denies chest pain and Denies dyspnea Respiratory: Respiratory: Denies dyspnea Gastrointestinal: Gastrointestinal: Denies abdominal pain Genitourinary: Genitourinary: Denies dysuria [facility] Past Medical History Medical History (Updated 04/15/21 @ 07:50 by Nahun Fishman DO) Dementia Hyperlipidemia Hypertension Surgical History Surgical History No history of previous surgery Family History Family History Mother Breast cancer Father Hypertension Acute myocardial infarction Son Diabetes mellitus Hyperlipemia Anxiety Son Hyperlipemia Anxiety Social History Social History Smoking status: Never smoker Alcohol intake: former Substance use: never Gender identity (if verbalized by the patient): Female Spiritual care concerns: No Meds Home Medications and Allergies Home Medications Medication Instructions Recorded Confirmed Type aspirin [Adult Aspirin EC Low 81 mg PO DAILY 08/30/20 04/15/21 History Strength] donepezil 10 mg PO DAILY 08/30/20 04/15/21 History losartan 50 mg PO DAILY 08/30/20 04/15/21 History memantine 10 mg PO DAILY 08/30/20 04/15/21 History metoprolol succinate 50 mg PO DAILY 08/30/20 04/15/21 History nifedipine 30 mg PO DAILY 08/30/20 04/15/21 History pravastatin 20 mg PO DAILY 08/30/20 04/15/21 History quetiapine 25 mg PO DAILY 08/30/20 04/15/21 History sertraline 100 mg PO DAILY 08/30/20 06
[2021-04-15] MEDS: MEMANTINE 10 MG TABLET PO (10:37)
[2021-04-15] MEDS: LORATADINE 10 MG TABLET PO (10:37)
[2021-04-15] MEDS: SERTRALINE HCL 50 MG TABLET 100 MG PO (10:37)
[2021-04-15] MEDS: NIFEdipine 30 MG TAB.ER.24 PO (10:37)
[2021-04-15] MEDS: LOSARTAN POTASSIUM 50 MG TABLET PO (10:37)
[2021-04-15] MEDS: METOPROLOL SUCCINATE EXT REL 50 MG TABCR PO (10:37)
--- NOTE | 2021-04-15 14:18 | PCNSR ---
On 04/15/21, the student,Casie Romero, provided care and completed [facility] documentation on this patient. I have reviewed the student's documentation and agree with the findings.
--- NOTE | 2021-04-15 16:15 | PM.IMPN ---
Progress Note: A&P Assessment and Plan (1) Pyelonephritis: Code(s): N12 - Tubulo-interstitial nephritis, not specified as acute or chronic Status: Acute Assessment and Plan: Started on Rocephin Await urinalysis cultures (2) Lewy body dementia with behavioral disturbance: Code(s): G31.83 - Dementia with Lewy bodies; F02.81 - Dementia in other diseases classified elsewhere with behavioral disturbance Status: Acute Assessment and Plan: Resume home meds Pt is pleasantly calm today (3) Altered mental status: Code(s): R41.82 - Altered mental status, unspecified Status: Acute Assessment and Plan: Likely secondary to pyelonephritis in the elderly Supportive care (4) Hypertension: Code(s): I10 - Essential (primary) hypertension Status: Acute Assessment and Plan: Resume home meds Continue to monitor Subjective Date/time seen: 04/15/21 16:15 Interval history: Discussed with son jyothi WEISS on Sunday Pt has cystitis with pyleonephritis history of dementia Review of Systems Review of Systems: All systems reviewed & are unremarkable except as noted in HPI and below Exam Const: General: comfortable, no acute distress, well developed, alert, awake, ill appearing acutely and other (Rigors) Nutritional Appearance: average body habitus Orientation/consciousness: Other orientation findings (Delirious) Resp: Effort & Inspection: normal respiratory effort Cardio: Jugular venous distension: no JVD Rate: regular rate Rhythm: regular rhythm Heart sounds: S1 normal heart sound present and S2 normal heart sound present GI: Inspection: normal to inspection Neuro: General: CN's II-XI intact bilaterally and other (Delirious) Cranial nerves: Yes CN's II-XII intact bilaterally and Yes Equal, round and reactive pupils present Cognition (Neuro): abnormal cognition (Delirious) Speech: normal speech Gait exam (Neuro): Normal gait present Motor exam (neuro): 5/5 motor strength present throughout Extrem: General: normal to inspection, full ROM, no joint enlargement and no pedal edema Psych: Appearance: grossly normal Mental Status: other (Delirious) Objective Data Vital Signs Vital Signs: Vital Signs - 24 hr 04/14/21 20:20 04/14/21 21:43 04/14/21 21:45 Temperature 36.9 C Pulse Rate 81 83 84 Respiratory Rate 14 22 H 19 Blood Pressure 126/47 L Pulse Oximetry 94 04/14/21 21:46 04/14/21 22:00 04/14/21 22:01 Temperature Pulse Rate 82 82 82 Respiratory Rate 22 H 17 18 Blood Pressure 121/47 L 110/62 Pulse Oximetry 04/14/21 22:15 04/14/21 22:16 04/14/21 22:36 Temperature Pulse Rate 77 81 76 Respiratory Rate 18 19 20 Blood Pressure 115/73 Pulse Oximetry 97 96 95 04/14/21 22:51 04/14/21 23:04 04/14/21 23:19 Temperature Pulse Rate 79 76 78 Respiratory Rate 17 17 20 Blood Pressure Pulse Oximetry 04/14/21 23:41 04/14/21 23:51 04/15/21 02:20 Temperature 36.7 C Pulse Rate 85 83 109 H Respiratory Rate 17 19 18 Blood Pressure 155/95 H Pulse Oximetry 94 04/15/21 04:00 04/15/21 06:00 04/15/21 08:00 Temperature 36.2 C L 37.2 C Pulse Rate 84 92 84 Respiratory Rate 16 16 Blood Pressure 100/65 129/58 L Pulse Oximetry 92 96 04/15/21 10:00 04/15/21 10:37 04/15/21 12:00 Temperature 36.4 C Pulse Rate 76 72 78 Respiratory Rate 14 Blood Pressure 113/48 L Pulse Oximetry 96 04/15/21 14:00 Temperature Pulse Rate 80 Respiratory Rate Blood Pressure Pulse Oximetry Intake/Output Intake/Output: Intake & Output 04/12/21 04/13/21 04/14/21 04/15/21 23:59 23:59 23:59 23:59 Intake Total 1050 Output Total 250 Balance -250 1050 Meds/Results Medications: Active Medications Generic Name Dose Route Start Last Admin Trade Name Freq PRN Reason Stop Dose Admin Albuterol 2.5 mg 04/15/21 03:59 Albuterol Sulfate Neb 2.5 Mg/0.5 Ml Inh INHALATION 05/15/21 04:0
[2021-04-15] MEDS: ENOXAPARIN 40 MG/0.4 ML SYRINGE SUB-Q (17:49)
[2021-04-15] MEDS: QUEtiapine FUMARATE 25 MG TABLET PO (21:14)
[2021-04-15] MEDS: DOCUSATE SODIUM 100 MG CAPSULE PO (21:14)
[2021-04-15] MEDS: DONEPEZIL HCL 10 MG TABLET PO (21:14)
[2021-04-16] VITALS (13 sets, daily range): BP systolic 121–153; BP diastolic 50–66; PULSE 64–88; RESP 18–21; TEMP 35.9–36.6; O2SAT 95–99
[2021-04-16 05:26] LABS: Basophils Absolute Auto 0.1 K/mm3 (0.0-0.1); Basophils Percent Auto 0.4 % (0.2-1.2); Eosinophils Absolute Auto 0.3 K/mm3 (0-0.3); Eosinophils Percent Auto 2.1 % (0-4.4); Hematocrit 33.9 % (37.0-47.0); Hemoglobin 10.7 g/dL (12.0-15.0); Immature Granulocyte Absolute 0.08 K/mm3 (0.00-0.031); Immature Granulocyte Percent A 0.6 % (0-0.5); Lymphocytes Absolute Auto 1.03 K/mm3 (0.9-3.2); Lymphocytes Percent Auto 7.8 % (18.3-44.2); Mean Corpuscular HGB Conc 31.6 g/dl (32-36); Mean Corpuscular Hemoglobin 29.5 pg (26-34); Mean Corpuscular Volume 93.4 fl (80-100); Mean Platelet Volume 9.5 fl (7.4-10.4); Monocytes Absolute Auto 1.4 K/mm3 (0.1-0.6); Monocytes Percent Auto 10.7 % (2.6-8.5); Neutrophils Absolute Auto 10.3 K/mm3 (1.3-6.7); Neutrophils Percent Auto 78.4 % (45.5-73.1); Platelet Count Result 199 k/mm3 (150-375); Red Blood Count 3.63 M/mm3 (4.2-5.4); Red Cell Distribution Width 13.5 % (11.5-14.5); White Blood Count 13.1 K/mm3 (4.5-10.0)
[2021-04-16 05:51] LABS: Alanine Aminotransferase 38 U/L (4-35); Albumin Level 2.8 g/dL (3.5-5.1); Alkaline Phosphatase 103 U/L (38-126); Anion Gap 3 mmol/L (8-16); Aspartate Amino Transferase 35 U/L (14-36); Bilirubin,Total 0.3 mg/dL (0.2-1.3); Blood Urea Nitrogen 41 mg/dL (7-17); Calcium 8.2 mg/dL (8.4-10.2); Carbon Dioxide 30 mmol/L (22-30); Chloride 105 mmol/L (98-107); Estimated CRCL calculation 44 ml/min; Estimated Glomerular Filt Rate > 60; Glucose 102 mg/dL (65-105); Potassium 3.7 mmol/L (3.4-5.0); Sodium 138 mmol/L (137-145)
--- NOTE | 2021-04-16 06:00 | ECHO_ITS ---
Patient Info Name: Noris Resendez Age: 85 years : 1935 Gender: Female Ht: 64 in Wt: 141 lbs BSA: 1.71 m2 HR: 76 bpm BP: 131 / 51 mmHg Technical Quality: Good Exam Date: 04/16/2021 12:28 PM Exam Location: [facility] Pulmonary Patient Status: Inpatient Admit Date: 04/15/2021 Staff Ordering Physician: Josy Stinson MD Addressing Machine Operator: Katiana Briceno RDCS Attending Provider: Claudine Suarez MD Referring Physician: Milad VILLARREAL; Exam Type: CA echo doppler color flow Study Info Complete two-dimensional, color flow and Doppler transthoracic echocardiogram is performed. Summary 1. Complete two-dimensional, color flow and Doppler transthoracic echocardiogram is performed. 2. Left ventricular chamber dimension is mildly enlarged. 3. Left ventricular systolic function is mildly reduced, estimated at 45-50%. 4. There is moderate concentric increased left ventricular wall thickness. 5. The left ventricular diastolic function is abnormal. 6. E/e' 13 is mildly elevated. 7. Right ventricular systolic function is mildly reduced with abnormal TAPSE 1.2 cm. 8. Left atrial chamber dimension is severely enlarged. 9. There is mild aortic valve sclerosis. 10. There is mild aortic valve regurgitation. 11. There is mild to moderate mitral valve regurgitation. 12. There is mild tricuspid valve regurgitation. 13. No pulmonary hypertension, estimated pulmonary arterial systolic pressure is 37 mmHg. 14. There is mild pulmonic regurgitation. Left Ventricle E/e' 13 is mildly elevated. Left ventricular chamber dimension is mildly enlarged. Left ventricular systolic function is mildly reduced, estimated at 45-50%. There is moderate concentric increased left ventricular wall thickness. The left ventricular diastolic function is abnormal. Right Ventricle Right ventricular systolic function is mildly reduced with abnormal TAPSE 1.2 cm. Right ventricular chamber dimension is normal. Left Atria Left atrial chamber dimension is severely enlarged. Right Atria Right atrial chamber dimension is normal. Aortic Valve The aortic valve is trileaflet. There is mild aortic valve sclerosis. There is no aortic valve stenosis. There is mild aortic valve regurgitation. Pulmonic Valve There is mild pulmonic regurgitation. Mitral Valve There is no mitral valve stenosis. There is mild to moderate mitral valve regurgitation. Tricuspid Valve There is mild tricuspid valve regurgitation. No pulmonary hypertension, estimated pulmonary arterial systolic pressure is 37 mmHg. Pericardium/Pleural There is no pericardial effusion. Inferior Vena Cava Normal inferior vena cava with >50% collapse upon inspiration consistent with normal right atrial pressure, 5 mmHg. Aorta The aortic root size at the sinus of Valsalva is normal. Left Ventricular Outflow Tract Name Value Normal LVOT Doppler LVOT Peak Gradient 2 mmHg LVOT Mean Gradient 1 mmHg LVOT VTI 17 cm LVOT VTI/AV VTI Ratio 0.5 Pulmonic Valve Name Value
--- NOTE | 2021-04-16 08:31 | PM.PNCARD ---
Progress Note: A&P Assessment and Plan (1) Hypertension: Code(s): I10 - Essential (primary) hypertension Status: Acute Assessment and Plan: Stable. (2) Hyperlipidemia: Code(s): E78.5 - Hyperlipidemia, unspecified Status: Inactive Assessment and Plan: On Pravastatin. (3) Altered mental status: Code(s): R41.82 - Altered mental status, unspecified Status: Acute Assessment and Plan: She has underlying dementia and may have been worse due to UTI/pyelonephritis. (4) Pyelonephritis: Code(s): N12 - Tubulo-interstitial nephritis, not specified as acute or chronic Status: Acute Assessment and Plan: On antibitoics and followed by hospitalist. (5) Elevated troponin: Code(s): R77.8 - Other specified abnormalities of plasma proteins Status: Acute Assessment and Plan: Mild and trended down. Asymptomatic from cardiac standpoint. Probably non-cardiac related due to UTI/pyelonephritis. Obtain echo to assess for wall motion abnormalities. If no WMA, no further cardiac workup is needed. Subjective Date/time seen: 04/16/21 08:31 Denies chest pain or sob or dysuria. Exam Const: General: cooperative and healthy appearing Resp: Auscultation: clear to auscultation bilaterally, no crackles, no rales, no rhonchi and no wheezes Cardio: Jugular venous distension: no JVD Rate: regular rate Rhythm: regular rhythm Heart sounds: no murmurs Peripheral pulses: dorsalis pedis present GI: GI Palp: No abdominal tenderness and Yes Soft to palpation Neuro: General: oriented to person, oriented to place and No oriented to time Extrem: Right lower extremity: no edema Left lower extremity: no edema Objective Data Vital Signs Vital Signs: Vital Signs - 24 hr 04/15/21 10:00 04/15/21 10:37 04/15/21 12:00 Temperature 97.6 F Pulse Rate 76 72 78 Respiratory Rate 14 Blood Pressure 113/48 L Pulse Oximetry 96 04/15/21 14:00 04/15/21 16:00 04/15/21 18:00 Temperature 97.9 F Pulse Rate 80 76 80 Respiratory Rate 14 Blood Pressure 116/48 L Pulse Oximetry 96 04/15/21 19:56 04/15/21 20:00 04/15/21 22:00 Temperature 97.6 F Pulse Rate 83 81 81 Respiratory Rate 12 Blood Pressure 117/45 L Pulse Oximetry 95 04/16/21 00:00 04/16/21 02:00 04/16/21 03:54 Temperature 97.4 F L 96.9 F L Pulse Rate 77 76 65 Respiratory Rate 20 18 Blood Pressure 121/50 L 131/51 L Pulse Oximetry 98 99 04/16/21 04:00 04/16/21 06:00 04/16/21 08:27 Temperature Pulse Rate 67 74 64 Respiratory Rate 21 H Blood Pressure 136/57 L Pulse Oximetry 96 Intake/Output Intake/Output: Intake & Output 04/13/21 04/14/21 04/15/21 04/16/21 23:59 23:59 23:59 23:59 Intake Total 1760 Output Total 250 300 150 Balance -250 1460 -150 Meds/Results Medications: Active Medications Generic Name Dose Route Start Last Admin Trade Name Freq PRN Reason Stop Dose Admin Albuterol 2.5 mg 04/15/21 03:59 Albuterol Sulfate Neb 2.5 Mg/0.5 Ml Inh INHALATION 05/15/21 04:00 PRN PRN sob Docusate Sodium 100 mg 04/15/21 21:00 04/15/21 21:14 Docusate Sodium 100 Mg Capsule PO 100 mg HS SUNITA Administration Donepezil HCl 10 mg 04/15/21 21:00 04/15/21 21:14 Donepezil Hcl 10 Mg Tablet PO 10 mg HS SUNITA Administration Enoxaparin Sodium 40 mg 04/15/21 14:00 04/15/21 17:49 Enoxaparin 40 Mg/0.4 Ml Syringe SUB-Q 40 mg Q24H SUNITA Administration Ceftriaxone Sodium/Dextrose 1 gm in 50 mls @ 100 mls/hr 04/15/21 21:00 04/15/21 21:45 Rocephin 1 Gm/D5w 50 Ml IVPB Infused HS SUNITA Infusion Ipratropium Eunice 0.5 mg 04/15/21 03:42 Ipratropium Br 0.02% Inh Soln 0.5 Mg/2.5 Ml Vial INHALATION PRN PRN sob Loratadine 10 mg 04/15/21 09:00 04/15/21 10:37 Loratadine 10 Mg Tablet PO 10 mg QAM SUNITA Administration Losartan Potassium 50 mg 04/15/21 09:00 04/15/21 10:37 Losartan Pot
[2021-04-16] MEDS: NIFEdipine 30 MG TAB.ER.24 PO (09:39)
[2021-04-16] MEDS: SERTRALINE HCL 50 MG TABLET 100 MG PO (09:39)
[2021-04-16] MEDS: LORATADINE 10 MG TABLET PO (09:39)
[2021-04-16] MEDS: METOPROLOL SUCCINATE EXT REL 50 MG TABCR PO (09:39)
[2021-04-16] MEDS: LOSARTAN POTASSIUM 50 MG TABLET PO (09:40)
[2021-04-16] MEDS: MEMANTINE 10 MG TABLET PO (09:40)
--- NOTE | 2021-04-16 10:30 | PM.IMPN ---
Progress Note: A&P Assessment and Plan (1) Pyelonephritis: Code(s): N12 - Tubulo-interstitial nephritis, not specified as acute or chronic Status: Acute Assessment and Plan: Started on Rocephin Await urinalysis cultures identification and sensitivity, still pending 04/16 Deescalate antibiotics as needed Supportive care (2) Lewy body dementia with behavioral disturbance: Code(s): G31.83 - Dementia with Lewy bodies; F02.81 - Dementia in other diseases classified elsewhere with behavioral disturbance Status: Acute Assessment and Plan: Continue home (3) Altered mental status: Code(s): R41.82 - Altered mental status, unspecified Status: Acute Assessment and Plan: Likely secondary to pyelonephritis in the elderly Now near baseline (4) Hypertension: Code(s): I10 - Essential (primary) hypertension Status: Acute Assessment and Plan: Continue home meds Subjective Date/time seen: 04/16/21 10:30 Interval history: 85 y/o f with UTI due to e. coli. 04/16: Mild right side discomfort with activity. Eating well. Tolerating therapy. Review of Systems Review of Systems: ROS unobtainable: Yes unobtainable due to mental status (Dementia) Exam Narrative: Exam Narrative: HEENT: EOMI, PERRL, sclerae nonicteric, pharyngeal mucosa pink and intact NECK: No JVD CHEST: Clear to auscultation. Normal effort. HEART: NL S1/S2, regular, no murmur ABDOMEN: BS+, soft, nontender, no mass, no bruits EXTREMITIES: No cyanosis, edema, or clubbing NEUROLOGIC: CN intact and symmetric to inspection. MUSCULOSKELETAL: Tone and strength symmetric. PSYCH: Alert. Oriented to person and year. (Knew she was in a hospital, but not which one) Objective Data Vital Signs Vital Signs: Vital Signs - 24 hr 04/15/21 10:37 04/15/21 12:00 04/15/21 14:00 Temperature 97.6 F Pulse Rate 72 78 80 Respiratory Rate 14 Blood Pressure 113/48 L Pulse Oximetry 96 04/15/21 16:00 04/15/21 18:00 04/15/21 19:56 Temperature 97.9 F 97.6 F Pulse Rate 76 80 83 Respiratory Rate 14 12 Blood Pressure 116/48 L 117/45 L Pulse Oximetry 96 95 04/15/21 20:00 04/15/21 22:00 04/16/21 00:00 Temperature 97.4 F L Pulse Rate 81 81 77 Respiratory Rate 20 Blood Pressure 121/50 L Pulse Oximetry 98 04/16/21 02:00 04/16/21 03:54 04/16/21 04:00 Temperature 96.9 F L Pulse Rate 76 65 67 Respiratory Rate 18 Blood Pressure 131/51 L Pulse Oximetry 99 04/16/21 06:00 04/16/21 08:27 04/16/21 09:39 Temperature Pulse Rate 74 64 78 Respiratory Rate 21 H Blood Pressure 136/57 L Pulse Oximetry 96 Intake/Output Intake/Output: Intake & Output 04/13/21 04/14/21 04/15/21 04/16/21 23:59 23:59 23:59 23:59 Intake Total 1760 Output Total 250 300 150 Balance -250 1460 -150 Meds/Results Medications: Active Medications Generic Name Dose Route Start Last Admin Trade Name Freq PRN Reason Stop Dose Admin Albuterol 2.5 mg 04/15/21 03:59 Albuterol Sulfate Neb 2.5 Mg/0.5 Ml Inh INHALATION 05/15/21 04:00 PRN PRN sob Docusate Sodium 100 mg 04/15/21 21:00 04/15/21 21:14 Docusate Sodium 100 Mg Capsule PO 100 mg HS SUNITA Administration Donepezil HCl 10 mg 04/15/21 21:00 04/15/21 21:14 Donepezil Hcl 10 Mg Tablet PO 10 mg HS SUNITA Administration Enoxaparin Sodium 40 mg 04/15/21 14:00 04/15/21 17:49 Enoxaparin 40 Mg/0.4 Ml Syringe SUB-Q 40 mg Q24H SUNITA Administration Ceftriaxone Sodium/Dextrose 1 gm in 50 mls @ 100 mls/hr 04/15/21 21:00 04/15/21 21:45 Rocephin 1 Gm/D5w 50 Ml IVPB Infused HS SUNITA Infusion Ipratropium [place] 0.5 mg 04/15/21 03:42 Ipratropium Br 0.02% Inh Soln 0.5 Mg/2.5 Ml Vial INHALATION PRN PRN sob Loratadine 10 mg 04/15/21 09:00 04/16/21 09:39 Loratadine 10 Mg Tablet PO 10 mg QAM SUNITA Administration Losartan Potassium 50 mg 04/15/21 09:00 04/16/21 09:40
[2021-04-16] MEDS: ENOXAPARIN 40 MG/0.4 ML SYRINGE SUB-Q (14:08)
--- NOTE | 2021-04-16 15:47 | PC.NURSE ---
This patient, Noris Resendez, was transferred to [ [facility]] on 04/16/21 at 1440. Personal belongings sent with patient. Report given to [ Magaly]. Appropriate documentation sent with patient.
[2021-04-16] MEDS: DONEPEZIL HCL 10 MG TABLET PO (21:20)
[2021-04-16] MEDS: QUEtiapine FUMARATE 25 MG TABLET PO (21:20)
[2021-04-16] MEDS: DOCUSATE SODIUM 100 MG CAPSULE PO (21:20)
[2021-04-17 02:00] VITALS: BP 146/60; PULSE 76; RESP 18; TEMP 37.4; O2SAT 95
[2021-04-17 06:00] VITALS: BP 147/67; PULSE 83; RESP 18; TEMP 37; O2SAT 94
--- NOTE | 2021-04-17 07:30 | PM.PNCARD ---
Progress Note: A&P Assessment and Plan (1) Hypertension: Code(s): I10 - Essential (primary) hypertension Status: Acute Assessment and Plan: Stable. (2) Hyperlipidemia: Code(s): E78.5 - Hyperlipidemia, unspecified Status: Inactive Assessment and Plan: On Pravastatin. (3) Altered mental status: Code(s): R41.82 - Altered mental status, unspecified Status: Acute Assessment and Plan: She has underlying dementia and may have been worse due to UTI/pyelonephritis. (4) Pyelonephritis: Code(s): N12 - Tubulo-interstitial nephritis, not specified as acute or chronic Status: Acute Assessment and Plan: On antibitoics and followed by hospitalist. (5) Elevated troponin: Code(s): R77.8 - Other specified abnormalities of plasma proteins Status: Acute Assessment and Plan: Mild and trended down. Asymptomatic from cardiac standpoint. Probably non-cardiac related due to UTI/pyelonephritis. Echo is OK showing EF 45-50%, mild LVH, diastolic dysfunction (E/e' 13), severe LAE, mild-mod MR, mild AI/TR/PI. No further cardiac workup is needed. Will sign off, please call with any questions. Subjective Date/time seen: 04/17/21 07:30 Denies chest pain or sob. Exam Const: General: cooperative and healthy appearing Resp: Auscultation: clear to auscultation bilaterally, no crackles, no rales, no rhonchi and no wheezes Cardio: Jugular venous distension: no JVD Rate: regular rate Rhythm: regular rhythm Heart sounds: no murmurs Peripheral pulses: dorsalis pedis present GI: GI Palp: No abdominal tenderness and Yes Soft to palpation Neuro: General: oriented to person, oriented to place and No oriented to time Extrem: Right lower extremity: no edema Left lower extremity: no edema Objective Data Vital Signs Vital Signs: Vital Signs - 24 hr 04/16/21 08:00 04/16/21 08:27 04/16/21 09:39 Temperature Pulse Rate 78 64 78 Respiratory Rate 21 H Blood Pressure 136/57 L Pulse Oximetry 97 96 04/16/21 10:00 04/16/21 12:00 04/16/21 12:23 Temperature 96.7 F L Pulse Rate 74 77 74 Respiratory Rate 20 Blood Pressure 147/63 H Pulse Oximetry 97 97 04/16/21 18:43 04/16/21 20:06 04/17/21 02:00 Temperature 97.8 F 97.6 F 99.3 F Pulse Rate 82 84 76 Respiratory Rate 18 18 18 Blood Pressure 153/66 H 143/51 H 146/60 H Pulse Oximetry 96 95 95 04/17/21 06:00 Temperature 98.6 F Pulse Rate 83 Respiratory Rate 18 Blood Pressure 147/67 H Pulse Oximetry 94 Intake/Output Intake/Output: Intake & Output 04/14/21 04/15/21 04/16/21 04/17/21 23:59 23:59 23:59 23:59 Intake Total 1760 1080 400 Output Total 250 300 550 Balance -250 1460 530 400 Meds/Results Medications: Active Medications Generic Name Dose Route Start Last Admin Trade Name Freq PRN Reason Stop Dose Admin Albuterol 2.5 mg 04/15/21 03:59 Albuterol Sulfate Neb 2.5 Mg/0.5 Ml Inh INHALATION 05/15/21 04:00 PRN PRN sob Docusate Sodium 100 mg 04/15/21 21:00 04/16/21 21:20 Docusate Sodium 100 Mg Capsule PO 100 mg HS SUNITA Administration Donepezil HCl 10 mg 04/15/21 21:00 04/16/21 21:20 Donepezil Hcl 10 Mg Tablet PO 10 mg HS SUNITA Administration Enoxaparin Sodium 40 mg 04/15/21 14:00 04/16/21 14:08 Enoxaparin 40 Mg/0.4 Ml Syringe SUB-Q 40 mg Q24H USNITA Administration Ceftriaxone Sodium/Dextrose 1 gm in 50 mls @ 100 mls/hr 04/15/21 21:00 04/16/21 21:08 Rocephin 1 Gm/D5w 50 Ml IVPB Infused HS SUNITA Infusion Ipratropium [place] 0.5 mg 04/15/21 03:42 Ipratropium Br 0.02% Inh Soln 0.5 Mg/2.5 Ml Vial INHALATION PRN PRN sob Loratadine 10 mg 04/15/21 09:00 04/16/21 09:39 Loratadine 10 Mg Tablet PO 10 mg QAM SUNITA Administration Losartan Potassium 50 mg 04/15/21 09:00 04/16/21 09:40 Losartan Potassium 50 Mg Tablet PO 50 mg DAILY SUNITA Administration Memantine 10 mg 04/15/21 09:00
[2021-04-17 10:00] VITALS: BP 117/53; PULSE 81; RESP 16; TEMP 35.7; O2SAT 97
[2021-04-17] MEDS: NIFEdipine 30 MG TAB.ER.24 PO (12:31)
[2021-04-17] MEDS: SERTRALINE HCL 50 MG TABLET 100 MG PO (12:31)
[2021-04-17 12:32] VITALS: PULSE 74
[2021-04-17] MEDS: LORATADINE 10 MG TABLET PO (12:32)
[2021-04-17] MEDS: MEMANTINE 10 MG TABLET PO (12:32)
[2021-04-17] MEDS: METOPROLOL SUCCINATE EXT REL 50 MG TABCR PO (12:32)
[2021-04-17] MEDS: LOSARTAN POTASSIUM 50 MG TABLET PO (12:32)
--- NOTE | 2021-04-17 13:33 | PM.DS ---
DS: Admitting Diagnosis Admitting Diagnosis Admitting Diagnosis: Urinary tract infection DS: Discharge Diagnosis Discharge Diagnosis (1) Pyelonephritis: Code(s): N12 - Tubulo-interstitial nephritis, not specified as acute or chronic Status: Acute Assessment and Plan: Started on Rocephin 04/15 at 21:00 and received dose 2 04/16. 04/18 c/s with sensitive e coli, so complete 3 additional days of cefdinir 300mg bid F/u with PCP to confirm cure (2) Lewy body dementia with behavioral disturbance: Code(s): G31.83 - Dementia with Lewy bodies; F02.81 - Dementia in other diseases classified elsewhere with behavioral disturbance Status: Acute Assessment and Plan: Continue home (3) Altered mental status: Code(s): R41.82 - Altered mental status, unspecified Status: Acute Assessment and Plan: Likely secondary to pyelonephritis in the elderly Now at baseline (4) Hypertension: Code(s): I10 - Essential (primary) hypertension Status: Acute Assessment and Plan: Continue home meds DS: Summary Hospital Course Reason for hospitalization: Urinary tract infection Hospital Course: Patient was brought the emergency room by family due to increasing confusion. Found to have an abnormal urinalysis. Risk sensitive E coli. Was hydrated and treated with ceftriaxone. Her mental status returned to near baseline. She was discharged home to complete course of oral antibiotics. Status at Discharge Overall status at discharge: patient is progressing back to baseline Time Spent with Patient Time attestation: Total time spent providing and/or coordinating discharge services: Time spent: Greater than 30 minutes Exam Narrative: Exam Narrative: HEENT: EOMI, PERRL, sclerae nonicteric, pharyngeal mucosa pink and intact NECK: No JVD CHEST: Clear to auscultation. Normal effort. HEART: NL S1/S2, regular, no murmur ABDOMEN: BS+, soft, nontender, no mass, no bruits EXTREMITIES: No cyanosis, edema, or clubbing NEUROLOGIC: CN intact and symmetric to inspection. MUSCULOSKELETAL: Tone and strength symmetric. PSYCH: Alert. Oriented to person and year. (Knew she was in a hospital, but not which one) DS: Data Data Completed and Pending Labs on day of discharge: Preliminary micro results at discharge 04/14/21 22:43 Urine Culture - Preliminary Urine Catheterized Escherichia Coli Discharge Plan Discharge Consulting providers: Nahun Fishman Discharging Clinician: Alexx Bradshaw Patient Disposition: Other Activity: no straining and no driving Diet: as tolerated Patient Instructions: Antibiotic Form, Kidney Infection (DC), Urinary Tract Infection in Older Adults (DC) Stand Alone Forms: General Discharge Information Follow-up/Referrals: UNKNOWN,DOCTOR [Primary Care Provider] - 1 Week (See primary care provider within one week. ) Discharge Medications: New cefdinir 300 mg capsule 300 mg PO Q12H Qty: 6 RF: 0 Continued losartan 50 mg tablet 50 mg PO DAILY RF: 0 quetiapine 25 mg tablet 25 mg PO DAILY RF: 0 metoprolol succinate 50 mg tablet extended release 24 hr 50 mg PO DAILY RF: 0 donepezil 10 mg tablet 10 mg PO DAILY RF: 0 sertraline 100 mg tablet 100 mg PO DAILY RF: 0 nifedipine 30 mg tablet extended release 30 mg PO DAILY RF: 0 pravastatin 20 mg tablet 20 mg PO DAILY RF: 0 memantine 10 mg tablet 10 mg PO DAILY RF: 0 aspirin 81 mg Tablet,Delayed Release (Dr/Ec) 81 mg PO DAILY RF: 0 furosemide 40 mg tablet 40 mg PO PRN PRN (Reason: swelling) RF: 0 ipratropium-albuterol 0.5 mg-3 mg(2.5 mg base)/3 mL solution for nebulization 3 ml INHALATION PRN PRN (Reason: sob) RF: 0 potassium chloride 10 mEq tablet extended release 10 meq PO PRN PRN (Reason: when taking lasix) RF: 0 naproxen sodium 220 mg Tablet 220 mg PO BID RF: 0 docusate sodium 100 mg Capsule 100 mg PO HS R
== END 2021-04-17 17:35 | disposition home or self-care (01) | DRG 690 ==
LOC: ANHED 22:19 → ANHIMU 04-15 08:00 → ANH3MED 04-19 13:58 → ANHIMU 04-19 13:58
PROVIDERS: Family Medicine; Admitting Provider Internal Medicine; Emergency Provider General Practice; Visit Provider Internal Medicine
DX: N10 Acute pyelonephritis (principal); F02.81 Dementia in other diseases classified elsewhere, unspecified severity, with behavioral disturbance; G31.83 Neurocognitive disorder with Lewy bodies; B96.20 Unspecified Escherichia coli [E. coli] as the cause of diseases classified elsewhere; I10 Essential (primary) hypertension; J44.9 Chronic obstructive pulmonary disease, unspecified; E78.5 Hyperlipidemia, unspecified
CPT/HCPCS: 36415; 51701; 70450; 71046; 74177; 80048; 80053; 80076; 81001; 83690; 84484; 85025; 85610; 85730; 87077; 87086; 87088; 87186; 93005; 93306; 96361; 96365; 97110; 97161; 97165; 97530; 99285; A9270; J0696; J1650; J7030; Q9967

== ENCOUNTER 2021-05-30 11:35 | Observation (INO) | payer MEDICARE, SELFPAY ==
[2021-05-30] VITALS (35 sets, daily range): BP systolic 103–145; BP diastolic 66–99; PULSE 64–153; RESP 16–23; TEMP 36.6–36.7; O2SAT 93–99; BMI 23.5
--- NOTE | ~2021-05-30 | CT_ITS ---
EXAMINATION: CTA chest PE protocol EXAM DATE: 05/30/2021 13:03 INDICATION: Chest pain, hilar mass. TECHNIQUE: Spiral CTA of the chest (pulmonary arteries) was performed with 100 cc Omnipaque 350 intr avenous contrast injection. Images were acquired during the pulmonary arterial phase. Coronal maxi mum intensity projection 3D-reconstructions were created by the technologist on dedicated workstation . Axial, coronal and sagittal reformatted images were reviewed. The dose-length product (DLP) for t his examination was 407.59 mGy-cm. The exposure was tailored according to patient size (auto mA exp osure control), and iterative reconstruction (ASIR) was used as additional dose reduction technique. There is no prior study for comparison. [id number]: There are no pulmonary emboli suspected. The main, central pulmonary arteries are dilated which can indicate elevated pulmonary arterial pressure, pulmonary arterial hypertension. No thorac ic aortic dissection. The lungs are clear, no right hilar mass. Small right pericardial effusion. Tracheobronchial tree is patent. There is no mediastinal, hilar or axillary lymphadenopathy. The re is no pneumothorax. There is cardiomegaly. There is mild coronary arterial calcification, arter ial sclerosis. Upper abdomen is unremarkable. There is thoracic spondylosis without osteoblastic o r osteolytic lesions identified. Several subacute right rib fractures. Subacute appearing T2 compre ssion fracture, mild loss of vertebral body height. IMPRESSION: 1. No pulmonary emboli. 2. Cardiomegaly and small right pleural effusion. 3. Dilated pulmonary arteries, no hilar mass. Reviewed, dictated and finalized at location B.
--- NOTE | ~2021-05-30 | XR_ITS ---
EXAMINATION: XR chest 2V EXAM DATE: 05/30/2021 11:55 INDICATION: Chest pain, lethargy. TECHNIQUE: Frontal and lateral projections of the chest obtained and reviewed. Comparison is made to prior examination from 04/14/2021. FINDINGS: There is fullness of the right hilum, possible lymphadenopathy or mass. Prior studies did not have this appearance. Relatively low lung volume is causing some pulmonary vascular crowding. Mil d cardiomegaly. No confluent consolidation, pneumothorax or pleural effusion suspected. There are bon y degenerative changes. Subacute left distal clavicular fracture. Mild to moderate thoracolumbar dext roscoliosis. IMPRESSION: 1. Possible right infrahilar lymphadenopathy or mass. Recommend follow-up CT. 2. Subacute left radicular fracture. Reviewed, dictated and finalized at location B.
--- NOTE | ~2021-05-30 | CT_ITS ---
EXAMINATION: CT brain wo con INDICATION: Head injury COMPARISON: 04/14/2021 TECHNIQUE: Standard unenhanced head CT. The dose-length product (DLP) was 681.00 mGy-cm. The mA was a djusted according to patient size. Iterative reconstruction technique was employed. FINDINGS: There is no acute intraparenchymal hemorrhage. There is a stable 2.1 cm sellar/suprasellar mass, consistent with a pituitary macroadenoma.. No evidence of acute infarction. There is severe per iventricular and subcortical hypodensity probably related to small vessel ischemic disease. There is significant prominence of the sulci and ventricles related to cerebral atrophy. Intracranial calcifie d cerebral atherosclerosis is noted. There are no extra-axial collections. There is no mass effect or midline shift. Changes in the globes are likely from ocular lens surgery. There is mild mucosal thic kening of the paranasal sinuses. IMPRESSION: 1. No acute intracranial abnormality. 2. Age related findings. 3. Stable sellar/suprasellar mass, consistent with a pituitary macroadenoma. Reviewed, dictated and finalized at location A.
--- NOTE | 2021-05-30 11:39 | ECG_ITS ---
Measurements Intervals [place] Rate: 143 P: [place]: 0 QRS: -40 QRSD: 135 T: 114 QT: 335 QTc: 518 Interpretive Statements ATRIAL FIBRILLATION WITH RAPID VENTRICULAR RESPONSE LEFT AXIS DEVIATION LEFT BUNDLE BRANCH BLOCK INFERIOR INFARCT OR DUE TO LBBB ABNORMAL ECG Electronically Signed On 05-30-2021 11:56:23 CDT by Nahun Fishman D.O.
[2021-05-30 12:15] LABS: Basophils Percent Auto 0.4 % (0.2-1.2); Eosinophils Absolute Auto 0.1 K/mm3 (0-0.3); Eosinophils Percent Auto 1.2 % (0-4.4); Hematocrit 36.1 % (37.0-47.0); Hemoglobin 11.8 g/dL (12.0-15.0); Immature Granulocyte Absolute 0.03 K/mm3 (0.00-0.031); Immature Granulocyte Percent A 0.3 % (0-0.5); Lymphocytes Absolute Auto 1.48 K/mm3 (0.9-3.2); Lymphocytes Percent Auto 13.5 % (18.3-44.2); Mean Corpuscular HGB Conc 32.7 g/dl (32-36); Mean Corpuscular Hemoglobin 29.4 pg (26-34); Mean Platelet Volume 9.4 fl (7.4-10.4); Monocytes Absolute Auto 0.9 K/mm3 (0.1-0.6); Monocytes Percent Auto 8.3 % (2.6-8.5); Neutrophils Absolute Auto 8.4 K/mm3 (1.3-6.7); Neutrophils Percent Auto 76.3 % (45.5-73.1); Platelet Count Result 293 k/mm3 (150-375); Red Blood Count 4.01 M/mm3 (4.2-5.4); Red Cell Distribution Width 13.8 % (11.5-14.5); White Blood Count 10.9 K/mm3 (4.5-10.0)
[2021-05-30 12:28] LABS: INR 1.2; Partial Thromboplastin Time 25.8 SECONDS (22.3-36.8); Prothrombin Time 14.7 Seconds (11.1-14.7)
[2021-05-30 12:29] LABS: Anion Gap 10 mmol/L (8-16); Blood Urea Nitrogen 56 mg/dL (7-17); Calcium 9.2 mg/dL (8.4-10.2); Carbon Dioxide 25 mmol/L (22-30); Chloride 98 mmol/L (98-107); Estimated CRCL calculation 33 ml/min; Estimated Glomerular Filt Rate 47; Glucose 194 mg/dL (65-110); Potassium 4.5 mmol/L (3.4-5.0); Sodium 133 mmol/L (137-145)
[2021-05-30 12:39] LABS: Troponin I < 0.012 ng/mL (0.000-0.034)
--- NOTE | 2021-05-30 12:44 | PC.NURSE ---
Per LIANNE Engel, no dose of aspirin needed at this time.
[2021-05-30] MEDS: SODIUM CHLORIDE 0.9% IV 1,000 ML 999 ML IV CONT (12:50)
[2021-05-30] MEDS: dilTIAZem HCl INJ 25 MG/5 ML VIAL 10 MG IV PUSH (13:17)
--- NOTE | 2021-05-30 13:25 | ED.CHESTPAIN ---
HPI - Chest Pain General Chief Complaint: Chest Pain Stated Complaint: lethargic, increased confusion, CP Time Seen by Provider: 05/30/21 11:58 History of Present Illness HPI narrative: Patient is an 85-year-old female who presents ER with her install and repair technician due to concerns of dehydration, confusion, and chest pain. Last couple weeks patient has had increased confusion and has had poor oral intake of fluids according to install and repair technician. Had been started on antibiotics at an outside urgent care without improvement of symptoms. Patient said no fevers or chills or sweats. She does seem to be more winded when she is ambulating according to the install and repair technician. Today patient woke up and told the install and repair technician that she thought she had had a heart attack but cannot verbalize what kind of chest pain she had, when it happened, how long it lasted, or any modifying factors to the chest pain. Related Data Home Medications Medication Instructions Recorded Confirmed aspirin 81 mg PO HS 08/30/20 05/30/21 losartan 50 mg PO DAILY 08/30/20 05/30/21 metoprolol succinate 50 mg PO HS 08/30/20 05/30/21 nifedipine 30 mg PO HS 08/30/20 05/30/21 pravastatin 20 mg PO DAILY 08/30/20 05/30/21 quetiapine 25 mg PO HS 08/30/20 05/30/21 B complex with C 20-folic acid 1 cap PO DAILY 04/15/21 05/30/21 Zyrtec 10 mg PO DAILY 04/15/21 05/30/21 cholecalciferol (vitamin D3) 125 mcg PO DAILY 04/15/21 05/30/21 docusate sodium 100 mg PO HS 04/15/21 05/30/21 furosemide 40 mg PO PRN PRN 04/15/21 05/30/21 ipratropium-albuterol 3 ml INHALATION PRN PRN 04/15/21 05/30/21 naproxen sodium 220 mg PO Q12H 04/15/21 05/30/21 potassium chloride 10 meq PO PRN PRN 04/15/21 05/30/21 buspirone 5 mg PO Q12H 05/30/21 05/30/21 fluoxetine 40 mg PO HS 05/30/21 05/30/21 Allergies Allergy/AdvReac Type Severity Reaction Status Date / Time carisoprodol Allergy Unknown Unknown Verified 05/30/21 11:44 [From Soma Compound] Review of Systems Review of Systems: ROS unobtainable: Yes unobtainable due to mental status PMFSH Past Medical History Medical History (Updated 05/30/21 @ 23:24 by Qasim Engel MD) Arthritis Benign tumor of pituitary gland Chronic rhinitis Congestive heart failure Echocardiogram on 04/16/2021 showed a mildly enlarged left ventricular chamber with mildly reduced left ventricular systolic function and an estimated EF of 45 to 50%, mild concentric left ventricular wall thickness, abnormal diastolic function, severe left atrial enlargement, and mild pulmonic, tricuspid, mitral, and aortic valve regurgitation with mild aortic valve sclerosis. Depression with anxiety Gastroesophageal reflux disease Hyperlipidemia Hypertension Lewy body dementia with behavioral disturbance Surgical History Surgical History History of bilateral cataract extraction (2019) Family History Family History Mother Breast cancer Father Hypertension Acute myocardial infarction Son Diabetes mellitus Hyperlipemia Anxiety Son Hyperlipemia Anxiety Social History Social History (Updated 05/30/21 @ 20:27 by Steffany Gandhi PA-C) Social History: The patient is and lives in [place]. Ambulates with a walker. Lifelong nonsmoker. No alcohol or illicit substance abuse. Her son, Fawad Resendez, is her healthcare power of patent prosecution attorney. Her caregiver, Shawanda Musa, is also in emergency contact. Code status: Full code. Exam Narrative: Exam Narrative: GENERAL: Well-appearing, well-nourished, and in no acute distress. HEAD: Normocephalic, atraumatic. EYES: PERRL and EOMI. CHEST: Clear to auscultation. No respiratory distress. HEART: Irregular regular rate and rhythm is tachycardic. Normal peripheral pulses. ABDOMEN: Soft, nontender, nondistended. EXTREMITIES: Normal range of motion. No edema. SKIN: Warm, dry, no rash. NEURO: Alert and oriented x2. PSYCH: Normal mo
--- NOTE | 2021-05-30 14:04 | PC.NURSE ---
Cardizem drip initiated at 5 mL/ hour. Caregiver updated. Pt will be admitted to hospital
--- NOTE | 2021-05-30 14:55 | PM.IMHP ---
H&P: HPI History of Present Illness Date/Time: 05/30/21 14:55 Chief Complaint: Not acting like herself. Narrative: This is an 85-year-old female with dementia, hypertension, and hyperlipidemia who presented to the emergency department earlier today via private vehicle from home accompanied by her caregiver for evaluation as she has just not been acting like herself for the last 2 weeks. The patient is able to provide very limited history and as such much of the following is obtained via a review of her electronic medical records and via discussions with her face and fill packer. A couple of weeks ago her face and fill packer noticed that the patient was having more confusion than normal and her oral intake had dropped off. She was seen at a local urgent care where she was prescribed antibiotics for urinary tract infection though it didn't seem like she improved much. More recently she has been complaining of short of breath with some chest pain that she has a difficult time describing. In fact she did not remember having chest pain when I came to visit her. On arrival to the emergency department she was found to be in atrial fibrillation with rapid ventricular response, a new diagnosis for the patient, and she is being admitted in this setting. Additionally her EKG demonstrates what appears to be a new left bundle branch block though she had a negative troponin. Currently she has no complaints and specifically denies fever, chills, sweats, cold and flu symptoms, chest pain, pleuritic pain, palpitations, shortness of breath (she seems winded when trying to get herself out of bed which is frequently), nausea, vomiting, diarrhea, and dysuria. Review of Systems Review of Systems: Narrative: Twelve systems were reviewed with pertinent positives and negatives as per HPI. The accuracy of such is questionable as she appears to have pretty significant short-term memory loss and she really was not able to give me much in the way of history today as above. She stated no for all questions asked of her. [facility] Past Medical History Medical History (Updated 05/30/21 @ 15:08 by Steffany Gandhi PA-C) Arthritis Benign tumor of pituitary gland Chronic rhinitis Congestive heart failure Echocardiogram on 04/16/2021 showed a mildly enlarged left ventricular chamber with mildly reduced left ventricular systolic function and an estimated EF of 45 to 50%, mild concentric left ventricular wall thickness, abnormal diastolic function, severe left atrial enlargement, and mild pulmonic, tricuspid, mitral, and aortic valve regurgitation with mild aortic valve sclerosis. Depression with anxiety Gastroesophageal reflux disease Hyperlipidemia Hypertension Lewy body dementia with behavioral disturbance Surgical History Surgical History History of bilateral cataract extraction (2019) Family History Family History Mother Breast cancer Father Hypertension Acute myocardial infarction Son Diabetes mellitus Hyperlipemia Anxiety Son Hyperlipemia Anxiety Social History Social History (Updated 05/30/21 @ 20:27 by Steffany Gandhi PA-C) Social History: The patient is and lives in [place]. Ambulates with a walker. Lifelong nonsmoker. No alcohol or illicit substance abuse. Her son, Fawad Resendez, is her healthcare power of health care attorney. Her caregiver, Shawanda Musa, is also in emergency contact. Code status: Full code. Meds Home Medications and Allergies Home Medications Medication Instructions Recorded Confirmed Type aspirin 81 mg PO HS 08/30/20 05/30/21 History losartan 50 mg PO DAILY 08/30/20 05/30/21 History metoprolol succinate 50 mg PO HS 08/30/20 05/30/21 History nifedipine 30 mg PO HS 08/30/20 05/30/21 History pravastatin 20 mg PO DAILY 08/30/20 05/30/21 History quetiapine 25 mg PO HS 08/30/20 05/30/21 History B complex with C 20-folic aci
[2021-05-30] MEDS: ENOXAPARIN 80 MG/0.8 ML SYRINGE 64 MG SUB-Q (15:40)
[2021-05-30 16:27] LABS: Add Urine Microscopic? YES; Appearance Urine Clear (Clear); Bilirubin Urine Negative (Negative); Blood Urine Negative (Negative); Color Urine Yellow (Yellow); Glucose Urine UA Negative (Negative); Ketones Urine Negative (Negative); Leukocyte Esterase Ur Negative LEU/UL (Negative); Mucus Urine Few /lpf; Nitrate Urine Negative (Negative); Protein Urine 1+ mg/dL (Negative); RBC Urine 0-2 /hpf (0-2); Squamous Epithelial Cell Urine Rare /hpf (Few); Urobilinogen Urine Negative mg/dL (<2.0)
--- NOTE | 2021-05-30 16:27 | PM.CNCAR ---
Assessment and Plan Assessment and plan (1) Atrial fibrillation with rapid ventricular response: Code(s): I48.91 - Unspecified atrial fibrillation Status: Acute Assessment and Plan: Probably due to age and UTI/dehydration. [id number] 5. Discussed with caregiver she is at high risk for cardioembolism without anticoagulation but given her high risk for falls, will have her on Aspirin 325 mg daily. Rate control with Diltiazem drip and Metoprolol Tartate PO. Check TSH. (2) Left bundle branch block: Code(s): I44.7 - Left bundle-branch block, unspecified Status: Acute (3) Congestive heart failure: Code(s): I50.9 - Heart failure, unspecified Status: Acute Assessment and Plan: Another echo has been ordered in ER. (4) Mild dehydration: Code(s): E86.0 - Dehydration Status: Acute Assessment and Plan: Gentle fluid hydration. History of Present Illness History of Present Illness Consult date/time: 05/30/21 16:27 Reason for consult: Atrial fibrillation with RVR. 85 yr old woman with lewy body dementia, COPD, hypertension, dyslipidemia, and UTI presents to hospital for altered mental status. Patient tells me nothing is bothering her. According to the caregiver who is at bedside, reports that patient is more confused than her usual so she brought her to ER. She has dementia and is oriented to name only. She was recently given antibiotics from her PCP for UTI. She fell at least 5 times hurting herself this past year. Denies chest pain, sob, orthopnea, PND, dizziness, palpitations. CTA of chest: No pulm embolism. Small right pleural effusion. CXR: Subacute left clavicular fracture. 05/30/21 EKG: Atrial fibrillation with RVR at 143 bpm, LBBB. 04/16/21 Echo: EF 45-50%, mild LVH, diastolic dysfunction (E/e' 13), severe LAE, mild-mod MR, mild AI/TR/PI. Reason For Visit: AFIB W/RVR Review of Systems Review of Systems: All systems reviewed & are unremarkable except as noted in HPI and below ROS unobtainable: Yes unobtainable due to mental status Constitutional: Constitutional: Reports as per HPI, Denies chills and Denies fever(s) Cardiovascular: Cardiovascular: Denies chest pain Respiratory: Respiratory: Denies dyspnea Gastrointestinal: Gastrointestinal: Denies abdominal pain Genitourinary: Genitourinary: Denies dysuria Musculoskeletal: Musculoskeletal: Reports as per HPI Neurologic: Reports as per HPI, Denies dizziness and Denies syncope [facility] Past Medical History Medical History (Updated 05/30/21 @ 15:08 by Steffany Gandhi PA-C) Arthritis Benign tumor of pituitary gland Chronic rhinitis Congestive heart failure Echocardiogram on 04/16/2021 showed a mildly enlarged left ventricular chamber with mildly reduced left ventricular systolic function and an estimated EF of 45 to 50%, mild concentric left ventricular wall thickness, abnormal diastolic function, severe left atrial enlargement, and mild pulmonic, tricuspid, mitral, and aortic valve regurgitation with mild aortic valve sclerosis. Depression with anxiety Gastroesophageal reflux disease Hyperlipidemia Hypertension Lewy body dementia with behavioral disturbance Surgical History Surgical History (Updated 05/30/21 @ 15:02 by Steffany Gandhi PA-C) History of bilateral cataract extraction (2019) Family History Family History Mother Breast cancer Father Hypertension Acute myocardial infarction Son Diabetes mellitus Hyperlipemia Anxiety Son Hyperlipemia Anxiety Social History Social History (Updated 05/30/21 @ 15:05 by Steffany Gandhi PA-C) Social History: The patient is and lives in [place]. Ambulates with a walker. Lifelong nonsmoker. No alcohol or illicit substance abuse. Her son, Fawad Resendez, is her healthcare power of banking attorney. Her caregiver, Shawanda Musa, is also in emergency contact. Code status:
--- NOTE | 2021-05-30 16:30 | PC.NURSE ---
Repeat troponin drawn peripherally and sent
[2021-05-30 16:38] LABS: Specific Grav Ur > 1.060 (1.001-1.035)
[2021-05-30 17:03] LABS: Troponin I < 0.012 ng/mL (0.000-0.034)
--- NOTE | 2021-05-30 17:07 | ADMGEN ---
This patient, Noris Resendez, was admitted to IMU Room 231-01. Patient/family oriented to hospital policies and general routines including ID bracelet, bed and alarms, visiting hours, pain management, procedures, bathroom and other care routines, personal items, smoking policy, room service/diet, and visiting hours. Information on how to activate the Rapid Response Team has been discussed. Patient/Family are encouraged to report perceived risks to care and to ask questions if they do not understand what they are told or what they should do.
[2021-05-30] MEDS: METOPROLOL TARTRATE 25 MG TABLET PO (17:32)
[2021-05-30 19:55] LABS: Magnesium 1.9 mg/dL (1.6-2.3)
[2021-05-30 19:59] LABS: Hemoglobin A1C 6.1 % (<5.7)
[2021-05-30 20:08] LABS: Troponin I < 0.012 ng/mL (0.000-0.034)
[2021-05-30] MEDS: FLUoxetine HCL 20 MG CAPSULE 40 MG PO (22:00)
[2021-05-30] MEDS: QUEtiapine FUMARATE 25 MG TABLET PO (22:00)
[2021-05-30] MEDS: busPIRone HCL 5 MG TABLET PO (22:00)
[2021-05-30] MEDS: DOCUSATE SODIUM 100 MG CAPSULE PO (22:00)
[2021-05-31] VITALS (20 sets, daily range): BP systolic 97–130; BP diastolic 47–81; PULSE 37–109; RESP 18–24; TEMP 36.2–36.8; O2SAT 96–98; BMI 23.5
[2021-05-31] MEDS: METOPROLOL TARTRATE 25 MG TABLET PO ×3 (00:37→20:08)
[2021-05-31 05:53] LABS: Hematocrit 30.9 % (37.0-47.0); Mean Corpuscular HGB Conc 32.4 g/dl (32-36); Mean Corpuscular Hemoglobin 29.5 pg (26-34); Mean Corpuscular Volume 91.2 fl (80-100); Mean Platelet Volume 9.7 fl (7.4-10.4); Platelet Count Result 232 k/mm3 (150-375); Red Blood Count 3.39 M/mm3 (4.2-5.4); Red Cell Distribution Width 14.2 % (11.5-14.5); White Blood Count 7.4 K/mm3 (4.5-10.0)
--- NOTE | 2021-05-31 06:00 | ECHOL_ITS ---
Patient Info Name: Noris Resendez Age: 85 years : 1935 Gender: Female Ht: 64 in Wt: 137 lbs BSA: 1.68 m2 HR: 78 bpm BP: 103 / 60 mmHg Exam Date: 05/31/2021 9:06 AM Exam Location: [facility] Patient Status: Inpatient Admit Date: 05/30/2021 Staff Ordering Physician: Qasim Engel MD Strings Teacher: Demetrice Salazar RDCS Attending Provider: Nathan Cavazos MD Referring Physician: Toro GEORGE; Exam Type: CA echo limited Study Info Indications - ATRIAL FIBRILLATION WITH RVR Limited two-dimensional transthoracic echocardiogram is performed. Summary 1. Limited echocardiogram to assess for wall motion abnormality. 2. Left ventricular chamber dimension is normal. 3. Left ventricular systolic function is preserved, estimated at 50-55%. 4. There is mildly increased left ventricular wall thickness. 5. Left ventricular septal wall motion is abnormal with septal motion related to bundle branch block. 6. Atrial fibrillation. 7. The left ventricular diastolic function is indeterminate. Tissue doppler is not performed. Left Ventricle Limited echocardiogram to assess for wall motion abnormality. Left ventricular systolic function is preserved, estimated at 50-55%. The left ventricular diastolic function is indeterminate. Tissue doppler is not performed. Atrial fibrillation. Left ventricular chamber dimension is normal. There is mildly increased left ventricular wall thickness. Left ventricular septal wall motion is abnormal with septal motion related to bundle branch block. Ventricles Name Value Normal LV Dimensions 2D/MM IVS Diastolic Thickness (2D) 0.9 cm 0.6-1.0 IVS Diastole Thickness (MM) 1.2 cm 0.6-0.9 LVID Diastole (2D) 4.4 cm 3.8-5.2 LVID Diastole (MM) 3.9 cm 3.8-5.2 LVIW Diastolic Thickness (2D) 1.0 cm 0.6-0.9 LVIW Diastolic Thickness (MM) 0.8 cm 0.6-0.9 LVID Systole (2D) 3.1 cm 2.2-3.5 LVID Systole (MM) 2.8 cm 2.2-3.5 LV Mass (2D Cubed) 140.31 g 67.00-162.00 LV Mass Index (2D Cubed) 83 g/m2 43-95 Relative Wall Thickness (2D) 0.43 LV Mass (MM Cubed) 116.44 g 67.00-162.00 LV Mass Index (MM Cubed) 69 g/m2 43-95 Relative Wall Thickness (MM) 0.40 LV Fractional Shortening/Ejection Fraction 2D/MM LV Fractional Shortening (2D) 29 % 27-45 LV Fractional Shortening (MM) 27 % 27-45 LV EF (MM Teicholz) 54 % 54-74 LV EF (2D Teicholz) 56 % 54-74 LV Diastolic Volume (4C MOD) 52 ml LV EF (4C MOD) 43 % LV Diastolic Volume (2C MOD) 44 ml LV EF (2C MOD) 45 % LV Diastolic Volume (BP MOD) 48 ml 46-106 LV Diastolic Volume Index (BP MOD) 28 ml/m2 29-61 LV Systolic Volume (BP MOD) 27 ml 14-42
[2021-05-31 06:31] LABS: Anion Gap 7 mmol/L (8-16); Blood Urea Nitrogen 46 mg/dL (7-17); Calcium 8.1 mg/dL (8.4-10.2); Carbon Dioxide 22 mmol/L (22-30); Chloride 103 mmol/L (98-107); Cholesterol 158 mg/dL (0-200); Estimated CRCL calculation 38 ml/min; Estimated Glomerular Filt Rate > 60; Glucose 94 mg/dL (65-110); HDL Direct 36 mg/dL; Magnesium 1.9 mg/dL (1.6-2.3); Potassium 3.8 mmol/L (3.4-5.0); Sodium 132 mmol/L (137-145); Triglycerides 89 mg/dL (<150)
[2021-05-31 07:14] LABS: LDL Cholesterol Direct 88 mg/dL
--- NOTE | 2021-05-31 07:58 | PM.PNCARD ---
Progress Note: A&P Assessment and Plan (1) Atrial fibrillation with rapid ventricular response: Code(s): I48.91 - Unspecified atrial fibrillation Status: Acute Assessment and Plan: Probably due to age and UTI/dehydration. [id number] 5. Discussed with caregiver she is at high risk for cardioembolism without anticoagulation but given her high risk for falls, will have her on Aspirin 325 mg daily. Rate control with Diltiazem drip and Metoprolol Tartate PO. TSH is normal. Discontinue Diltiazem drip. Start Diltiazem CD 240 mg daily and Metoprolol Tartate 25 mg PO every 6 hours for rate control. (2) Left bundle branch block: Code(s): I44.7 - Left bundle-branch block, unspecified Status: Acute Assessment and Plan: New. Probably rate related conduction abnormality. (3) Congestive heart failure: Code(s): I50.9 - Heart failure, unspecified Status: Acute Assessment and Plan: Appears to be euvolemic. Chronic mild systolic dysfunction with history of LV EF 45-50%. Another echo has been ordered in ER. Subjective Date/time seen: 05/31/21 07:58 She is oriented to name only. Denies anything is bother her. No chest pain or sob. Exam Const: General: cooperative, healthy appearing and comfortable Resp: Auscultation: clear to auscultation bilaterally, no crackles, no rales, no rhonchi and no wheezes Cardio: Jugular venous distension: no JVD Rate: regular rate Rhythm: abnormal rhythm Heart sounds: no murmurs GI: GI Palp: No abdominal tenderness and Yes Soft to palpation Neuro: General: oriented to person, No oriented to place and No oriented to time Objective Data Vital Signs Vital Signs: Vital Signs - 24 hr 05/30/21 11:40 05/30/21 12:06 05/30/21 12:15 Temperature 98.0 F Pulse Rate 64 126 H 140 H Respiratory Rate 18 21 H 18 Blood Pressure 116/69 103/68 Pulse Oximetry 99 99 05/30/21 12:19 05/30/21 12:27 05/30/21 12:33 Temperature Pulse Rate 153 H 129 H Respiratory Rate 19 21 H Blood Pressure Pulse Oximetry 97 05/30/21 12:45 05/30/21 12:46 05/30/21 13:13 Temperature Pulse Rate 117 H 135 H 126 H Respiratory Rate 19 23 H 21 H Blood Pressure 124/94 H Pulse Oximetry 05/30/21 13:16 05/30/21 13:30 05/30/21 13:33 Temperature Pulse Rate 128 H 107 H 103 H Respiratory Rate 20 16 18 Blood Pressure 124/82 128/82 Pulse Oximetry 94 05/30/21 13:34 05/30/21 13:51 05/30/21 14:00 Temperature Pulse Rate 92 125 H 120 H Respiratory Rate 20 18 Blood Pressure 133/87 Pulse Oximetry 05/30/21 14:04 05/30/21 14:23 05/30/21 14:31 Temperature Pulse Rate 108 H 117 H 123 H Respiratory Rate 19 18 20 Blood Pressure Pulse Oximetry 97 05/30/21 14:49 05/30/21 15:19 05/30/21 15:21 Temperature Pulse Rate 123 H 114 H 111 H Respiratory Rate 18 17 20 Blood Pressure 125/89 125/89 Pulse Oximetry 95 94 05/30/21 15:30 05/30/21 15:45 05/30/21 16:02 Temperature Pulse Rate 109 H 111 H 123 H Respiratory Rate 20 18 Blood Pressure 120/99 H Pulse Oximetry 05/30/21 16:08 05/30/21 16:15 05/30/21 16:16 Temperature Pulse Rate 113 H 128 H 123 H Respiratory Rate 17 19 20 Blood Pressure 134/79 Pulse Oximetry 95 05/30/21 16:30 05/30/21 16:40 05/30/21 17:00 Temperature 98.1 F Pulse Rate 107 H 109 H 97 Respiratory Rate 20 20 Blood Pressure 122/66 Pulse Oximetry 99 05/30/21 17:24 05/30/21 17:32 05/30/21 18:00 Temperature 97.9 F Pulse Rate 107 H 93 112 H Respiratory Rate 18 Blood Pressure 145/83 H Pulse Oximetry 93 05/30/21 20:00 05/30/21 22:00 05/31/21 00:00 Temperature 97.9 F 97.6 F Pulse Rate 84 86 82 Respiratory Rate 20 20 Blood Pressure 116/77 121/71 Pulse Oximetry 97 97 05/31/21 00:34 05/31/21 00:36 05/31/21 00:37 Temperature Pulse Rate 97 92 Respiratory Rate Blood Pressure 130/81 130/81 Pulse Oximetry 07/27/21 02:00 05/31/21 04:00 05/06
[2021-05-31] MEDS: ASPIRIN 325 MG ENTERIC TABLET PO (08:31)
[2021-05-31] MEDS: PRAVASTATIN SODIUM 20 MG TABLET PO (08:31)
[2021-05-31] MEDS: busPIRone HCL 5 MG TABLET PO ×2 (08:31→20:08)
[2021-05-31] MEDS: LORATADINE 10 MG TABLET PO (08:31)
[2021-05-31] MEDS: VITAMIN B CMPLX/VIT C/FOLIC AC 1 CAPSULE 1 CAP PO (08:31)
[2021-05-31] MEDS: CHOLECALCIFEROL 1,000 UNITS TABLET 5000 UNITS PO (08:32)
[2021-05-31] MEDS: LOSARTAN POTASSIUM 50 MG TABLET PO (08:32)
--- NOTE | 2021-05-31 11:28 | PM.IMPN ---
Progress Note: A&P Assessment and Plan (1) Atrial fibrillation with rapid ventricular response: Code(s): I48.91 - Unspecified atrial fibrillation Status: Acute Assessment and Plan: This is a new diagnosis for the patient. Currently on a Cardizem drip as well as p.o. metoprolol. CHADS2-VASc score is 5. She is, however, at high risk for falls and will be started on aspirin 325 mg daily only. Diltiazem drip changed to Cardizem CD and metoprolol continued. Appreciate Cardiology input. Discharge if rate remains stable (2) Left bundle branch block: Code(s): I44.7 - Left bundle-branch block, unspecified Status: Acute Assessment and Plan: Recent echocardiogram about a month ago showed no wall motion abnormalities. No evidence of previous left BBB. Echo here showing LVEF 50-55% with LV septal wall motion abnormality felt related to bundle branch block. LV diastolic function indeterminate. Trop negative x3. Seems to have rate related BBB by tele. Follow. (3) Clavicular fracture: Code(s): S42.009A - Fracture of unspecified part of unspecified clavicle, initial encounter for closed fracture Status: Acute Assessment and Plan: Subacute left distal clavicular fracture noted on chest x-ray on admission. Sling ordered for comfort. Tylenol available as needed. Patient does not recall how this happened but she is known to have had multiple falls recently. (4) Mild dehydration: Code(s): E86.0 - Dehydration Status: Acute Assessment and Plan: [place] mildly elevated at 1.1 with BUN 56. She received a liter of normal saline in ED. Cr better at 0.8 and BUN down to 46. Will not schedule any further fluids at this time. Encourage oral intake. (5) Hyperglycemia: Code(s): R73.9 - Hyperglycemia, unspecified Status: Acute Assessment and Plan: A1c 6.1. The patient's blood glucose was reviewed on 05/31 Glucose remains well controlled. (6) Hypertension: Code(s): I10 - Essential (primary) hypertension Status: Acute Assessment and Plan: Patient's blood pressure was reviewed on 05/31 Blood pressure remains well controlled. Will continue current medications. (7) Congestive heart failure: Code(s): I50.9 - Heart failure, unspecified Status: Acute Assessment and Plan: Appears clinically compensated at this time. Monitor clinically for now. (8) Lewy body dementia with behavioral disturbance: Code(s): G31.83 - Dementia with Lewy bodies; F02.81 - Dementia in other diseases classified elsewhere with behavioral disturbance Status: Acute Assessment and Plan: Mood stable. Continue quetiapine, Prozac and Buspar. Follow. Subjective Date/time seen: 05/31/21 11:28 Interval history: 85yo female with dementia and COPD here for altered mental status and found to have AFib/RVR. She is also has recently been started on abx for UTI. She is alert but confused. She denies CP, SOB, cough, nausea, vomiting. Hx is suspect Review of Systems Review of Systems: ROS unobtainable: Yes unobtainable due to mental status Exam Narrative: Exam Narrative: AF 98.2 103/77 85 20 98% ra Gen - NARD lying semi-recumbent having Echo Chest - bibasilar inspiratory crackles, nml RR CV - irregularly irregular. tele showing Afib with controlled rate; 2sec pauses; rate related bundle branch Abd - Soft, NT/ND, Positive BS Ext - No pedal edema, Laith hose in place Neuro - Alert but confused Psych - Nml mood and affect Skin - Warm and dry Objective Data Vital Signs Vital Signs: Vital Signs - 24 hr 05/30/21 11:40 05/30/21 12:06 05/30/21 12:15 Temperature 98.0 F Pulse Rate 64 126 H 140 H Respiratory Rate 18 21 H 18 Blood Pressure 116/69 103/68 Pulse Oximetry 99 99 05/30/21 12:19 05/30/21 12:27 05/30/21 12:33 Temperature Pulse Rate 153 H 129 H Respiratory Rate 19 21 H Bloo
[2021-05-31] MEDS: DOCUSATE SODIUM 100 MG CAPSULE PO (20:08)
[2021-05-31] MEDS: FLUoxetine HCL 20 MG CAPSULE 40 MG PO (20:08)
[2021-05-31] MEDS: QUEtiapine FUMARATE 25 MG TABLET PO (20:09)
[2021-06-01] VITALS (8 sets, daily range): BP systolic 107–122; BP diastolic 51–76; PULSE 74–110; RESP 14–16; TEMP 36.9–37; O2SAT 93–96
--- NOTE | 2021-06-01 06:43 | ECG_ITS ---
Measurements Intervals [place] Rate: 108 P: NE: 0 QRS: -25 QRSD: 102 T: 93 QT: 374 QTc: 502 Interpretive Statements ATRIAL FIBRILLATION WITH RAPID VENTRICULAR RESPONSE CANNOT RULE OUT SEPTAL INFARCT, AGE INDETERMINATE BORDERLINE ST-T WAVE ABNORMALITY- HIGH LATERAL LEADS BASELINE WANDER- I ABNORMAL ECG Electronically Signed On 06-01-2021 8:37:17 CDT by Nahun Fishman D.O.
--- NOTE | 2021-06-01 07:52 | PM.PNCARD ---
Progress Note: A&P Assessment and Plan (1) Atrial fibrillation with rapid ventricular response: Code(s): I48.91 - Unspecified atrial fibrillation Status: Acute Assessment and Plan: Probably due to age and UTI/dehydration. [id number] 5. Discussed with caregiver she is at high risk for cardioembolism without anticoagulation but given her high risk for falls, will have her on Aspirin 325 mg daily. She is agreeable to this. Rate controlled with Diltiazem drip and Metoprolol Tartate PO. TSH is normal. Discontinued Diltiazem drip. Decrease Diltiazem CD 180 mg daily and change Metoprolol Tartate 50 mg PO every 12 hours for rate control. If HR and BP remains controlled, may d/c home from cardiology standpoint and to f/u with me in 1-2 weeks. (2) Left bundle branch block: Code(s): I44.7 - Left bundle-branch block, unspecified Status: Acute Assessment and Plan: New. Probably rate related conduction abnormality. (3) Congestive heart failure: Code(s): I50.9 - Heart failure, unspecified Status: Acute Assessment and Plan: Appears to be euvolemic. Chronic mild systolic dysfunction with history of LV EF 45-50%. Limited echo shows EF is preserved at 50-55%. Subjective Date/time seen: 06/01/21 07:52 Denies chest pain or sob. Exam Const: General: cooperative, healthy appearing and comfortable Resp: Auscultation: clear to auscultation bilaterally, no crackles, no rales, no rhonchi and no wheezes Cardio: Jugular venous distension: no JVD Rate: regular rate Rhythm: abnormal rhythm Heart sounds: no murmurs GI: GI Palp: No abdominal tenderness and Yes Soft to palpation Neuro: General: oriented to person, No oriented to place and No oriented to time Objective Data Vital Signs Vital Signs: Vital Signs - 24 hr 05/31/21 08:00 05/31/21 10:00 05/31/21 12:00 Temperature 98.2 F 97.7 F Pulse Rate 37 L 85 89 Respiratory Rate 20 18 Blood Pressure 103/77 97/54 L Pulse Oximetry 98 96 05/31/21 14:00 05/31/21 15:44 05/31/21 16:00 Temperature 97.1 F L Pulse Rate 70 66 78 Respiratory Rate 24 H Blood Pressure 104/47 L Pulse Oximetry 98 05/31/21 18:00 05/31/21 20:00 05/31/21 20:08 Temperature 97.8 F Pulse Rate 84 83 91 Respiratory Rate 18 Blood Pressure 109/64 Pulse Oximetry 97 05/31/21 22:00 05/31/21 23:59 06/01/21 00:00 Temperature 97.8 F Pulse Rate 90 109 H 110 H Respiratory Rate 18 Blood Pressure 104/61 Pulse Oximetry 96 06/01/21 02:00 06/01/21 03:44 06/01/21 04:00 Temperature 98.6 F Pulse Rate 92 109 H 94 Respiratory Rate 14 Blood Pressure 107/51 L Pulse Oximetry 93 06/01/21 06:00 Temperature Pulse Rate 87 Respiratory Rate Blood Pressure Pulse Oximetry Intake/Output Intake/Output: Intake & Output 05/29/21 05/30/21 05/31/21 06/01/21 23:59 23:59 23:59 23:59 Intake Total 1540 220 Output Total 300 Balance 1240 220 Meds/Results Medications: Active Medications Generic Name Dose Route Start Last Admin Trade Name Freq PRN Reason Stop Dose Admin Acetaminophen 650 mg 05/30/21 14:16 Acetaminophen 325 Mg Tablet PO Q4H PRN Mild Pain (1-3) or Fever Hydrocodone Bitart/Acetaminophen 1 tab 05/30/21 14:16 Hydrocodone/Acetaminophen (*Crx) 5-325 Mg Tablet PO Q4H PRN Pain Rated 4-6 Aspirin 325 mg 05/31/21 09:00 05/31/21 08:31 Aspirin 325 Mg Enteric Tablet PO 325 mg QAM SUNITA Administration Buspirone HCl 5 mg 05/30/21 21:00 05/31/21 20:08 Buspirone Hcl 5 Mg Tablet PO 5 mg Q12HR SUNITA Administration Diltiazem HCl 180 mg 06/01/21 09:00 Diltiazem Hcl Cd 180 Mg Cap.Er.24h PO QAM SUNITA Docusate Sodium 100 mg 05/30/21 21:00 05/31/21 20:08 Docusate Sodium 100 Mg Capsule PO 100 mg HS SUNITA Administration Fluoxetine HCl 40 mg 05/30/21 21:00 05/31/21 20:08 Fluoxetine Hcl 20 Mg Capsule PO 40 mg HS SUNITA Administration Furosemide
[2021-06-01] MEDS: CHOLECALCIFEROL 1,000 UNITS TABLET 5000 UNITS PO (08:55)
[2021-06-01] MEDS: PRAVASTATIN SODIUM 20 MG TABLET PO (08:55)
[2021-06-01] MEDS: ASPIRIN 325 MG ENTERIC TABLET PO (08:55)
[2021-06-01] MEDS: VITAMIN B CMPLX/VIT C/FOLIC AC 1 CAPSULE 1 CAP PO (08:55)
[2021-06-01] MEDS: busPIRone HCL 5 MG TABLET PO (08:55)
[2021-06-01] MEDS: LORATADINE 10 MG TABLET PO (08:55)
[2021-06-01] MEDS: dilTIAZem HCL CD 180 MG CAP.ER.24H PO (08:56)
[2021-06-01] MEDS: METOPROLOL TARTRATE 50 MG TAB PO (08:57)
--- NOTE | 2021-06-01 10:57 | PM.DS ---
DS: Admitting Diagnosis Admitting Diagnosis Not acting like herself. DS: Discharge Diagnosis Discharge Diagnosis (1) Atrial fibrillation with rapid ventricular response: Code(s): I48.91 - Unspecified atrial fibrillation Status: Acute Assessment and Plan: Patient evaluated in the ED and found to have AFib. This is a new diagnosis for the patient. CTA showing no pulmonary emboli but cardiomegaly and small right pleural effusion. CXR was concerning for lumg mass but CTA showing dilated pulmonary arteries but no hilar mass. She was started on Cardizem drip as well as p.o. metoprolol. CHADS2-VASc score is 5. She is, however, at high risk for falls and will be started on aspirin 325 mg daily only. Family made aware. Diltiazem drip changed to Cardizem CD and metoprolol continued. Cardiology followed along. Heart rate remained stable with this oral regiment. Patient did have a fall with slight head trauma. Serial Neuro checks were unremarkable. CT brain showing no acute findings but does show stable sellar/suprasellar mass, consistent with a pituitary macroadenoma. (2) Left bundle branch block: Code(s): I44.7 - Left bundle-branch block, unspecified Status: Acute Assessment and Plan: Recent echocardiogram about a month ago showed no wall motion abnormalities. No evidence of previous left BBB. Limited Echo here showing LVEF 50-55% with LV septal wall motion abnormality felt related to bundle branch block. LV diastolic function indeterminate. Trop negative x3. Seems to have rate related BBB by telemetry (3) Clavicular fracture: Code(s): S42.009A - Fracture of unspecified part of unspecified clavicle, initial encounter for closed fracture Status: Acute Assessment and Plan: Subacute left distal clavicular fracture noted on chest x-ray on admission. Sling ordered for comfort. Tylenol available as needed for pain. Family state the is fracture was related to a fall from . (4) Mild dehydration: Code(s): E86.0 - Dehydration Status: Acute Assessment and Plan: Creatinine mildly elevated at 1.1 with BUN 56. She had a recent UTI a couple of weeks ago but not on abx on admission and UA essentially clear here. She received normal saline in ED. Cr better at 0.8 and BUN down to 46. (5) Hyperglycemia: Code(s): R73.9 - Hyperglycemia, unspecified Status: Acute Assessment and Plan: A1c 6.1. The patient's blood glucose was reviewed and glucose remained well controlled. (6) Hypertension: Code(s): I10 - Essential (primary) hypertension Status: Acute Assessment and Plan: Patient's blood pressure was reviewed and blood pressure remained well controlled. (7) Congestive heart failure: Code(s): I50.9 - Heart failure, unspecified Status: Acute Assessment and Plan: Remained clinically compensated. Tolerated the IV fluids. (8) Lewy body dementia with behavioral disturbance: Code(s): G31.83 - Dementia with Lewy bodies; F02.81 - Dementia in other diseases classified elsewhere with behavioral disturbance Status: Acute Assessment and Plan: Mood remained stable. We continued quetiapine, Prozac and Buspar. DS: Summary Hospital Course Reason for hospitalization: 85yo female with dementia and COPD here for altered mental status and found to have AFib/RVR. She is also has recently been started on abx for UTI. Please see H&P for details. Hospital Course: Please see above for details of hospital course Status at Discharge Cognitive/behavioral status at discharge: stable Time Spent with Patient Time attestation: Total time spent providing and/or coordinating discharge services: 35 minutes Time spent: Greater than 30 minutes Specific discharge activities: discussed with pet care attendant and family Exam Narrative: Exam Narrative: AF 98.4 122/76 85 16 96%
== END 2021-06-01 12:49 | disposition home or self-care (01) ==
LOC: ANHED 12:33 → ANHIMU 15:40
PROVIDERS: Emergency Medicine; Internal Medicine Cardiovascular Disease; Physician Assistant; Admitting Provider Internal Medicine; Emergency Provider Emergency Medicine; Visit Provider Internal Medicine
DX: I48.91 Unspecified atrial fibrillation (principal); E86.0 Dehydration; I44.7 Left bundle-branch block, unspecified; G31.83 Neurocognitive disorder with Lewy bodies; F02.80 Dementia in other diseases classified elsewhere, unspecified severity, without behavioral disturbance, psychotic disturbance, mood disturbance, and anxiety; I11.0 Hypertensive heart disease with heart failure; I50.9 Heart failure, unspecified; J44.9 Chronic obstructive pulmonary disease, unspecified; E78.5 Hyperlipidemia, unspecified; R73.9 Hyperglycemia, unspecified; S42.032D Displaced fracture of lateral end of left clavicle, subsequent encounter for fracture with routine healing; X58.XXXD Exposure to other specified factors, subsequent encounter
CPT/HCPCS: 36415; 51701; 70450; 71046; 71275; 80048; 80061; 81001; 83036; 83735; 84443; 84484; 85025; 85027; 85610; 85730; 93005; 93308; 96361; 96365; 96366; 96372; 96376; 97110; 97161; 97165; 97530; 99285; A4565; A9270; G0378; J1650; J7030; Q9967